=== PATIENT | male | born 1975 | race Caucasian/White ===

== ENCOUNTER → 2020-03-16 11:42 | Outpatient (BNVA) | payer OTHER, SELFPAY | PROVIDERS: Family Provider Family Medicine; PCP Family Medicine; Visit Provider Registered Nurse | DX: E11.9 Type 2 diabetes mellitus without complications (principal); E78.5 Hyperlipidemia, unspecified; I10 Essential (primary) hypertension | CPT/HCPCS: 80053; 80061; 83036; 85025 ==

== ENCOUNTER → 2020-05-21 12:58 | Outpatient (BNVA) | payer OTHER, SELFPAY | PROVIDERS: Family Provider Family Medicine; PCP Family Medicine; Visit Provider Registered Nurse | DX: Z20.828 Contact with and (suspected) exposure to other viral communicable diseases (principal); R11.0 Nausea; J06.9 Acute upper respiratory infection, unspecified | CPT/HCPCS: 87635 ==

== ENCOUNTER 2023-05-05 16:25 | Inpatient (IN) | payer OTHER, SELFPAY ==
[2023-05-05] VITALS (31 sets, daily range): BP systolic 88–158; BP diastolic 56–99; PULSE 101–122; RESP 13–24; TEMP 36.5; O2SAT 90–98; BMI 26.3
--- NOTE | 2023-05-05 16:44 | USR_ITS ---
PROCEDURE INFORMATION: Exam: US Abdomen, Limited; Right Upper Quadrant Exam date and time: 05/05/2023 6:13 PM Age: 47 years old Clinical indication: Nausea and vomiting; Additional info: N/v TECHNIQUE: Imaging protocol: Real time ultrasound of the abdomen with image documentation. Limited exam focused on the right upper quadrant. COMPARISON: No relevant prior studies available. FINDINGS: Liver: Normal. No masses. Small lobulated cyst adjacent to the gallbladder fossa. Gallbladder: Normal. No gallstones. There is no gallbladder wall thickening. Biliary ducts: Normal. No stones. No dilation. Pancreas: Visualized pancreas is unremarkable. Right kidney: Normal. No mass. No hydronephrosis. Trace fluid adjacent to the right kidney. US/US gall bladder 71017 IMPRESSION: No significant abnormality.
--- NOTE | 2023-05-05 16:47 | ECG_ITS ---
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 Measurements Intervals [place] Rate: 118 P: 50 MS: 136 QRS: 268 QRSD: 90 T: 39 QT: 307 QTc: 431 Interpretive Statements SINUS TACHYCARDIA POSSIBLE LEFT ATRIAL ENLARGEMENT [-0.1mV P-WAVE IN V1/V2] RIGHT AXIS DEVIATION [QRS AXIS > 100] ANTEROSEPTAL MYOCARDIAL INFARCTION , POSSIBLY ACUTE [40+ ms Q WAVE IN V1-V4] Features of high lateral wall SD ACUTE SD Compared to ECG 07/18/2018 06:00:33 Right-axis deviation now present Myocardial infarct finding now present Sinus rhythm no longer present Electronically Signed On 05-06-2023 15:14:54 DENTAL EQUIPMENT REPAIRER by Matt Chen M.D. [id number]
--- NOTE | 2023-05-05 16:48 | P.HP_ITS ---
Providers/Chief Complaint Admitting Physician: Brian Gordon MD Primary Care Provider: Kiran Walton MD Chief Complaint: DKA History of Present Illness Indio Woodward is a 47 year old male with a past medical history of CAD status post stenting x1, history of type 2 diabetes mellitus, hypertension, hyperlipidemia, who presents to [facility] due to 72 hours of nausea, vomiting, diarrhea, denies any sick contacts, recent travel, no fevers, no chills, denies any drug use, does not have any specific abdominal pain, denies any coffee-ground emesis, no hematemesis, no bloody or black stools Review of Systems Const: Reports: body aches; Denies: fever(s) or chills Card: Denies: chest pain Resp: Denies: dyspnea GI: Reports: nausea, vomiting and diarrhea; Denies: abdominal pain, coffee ground emesis or dysphagia : Denies: flank pain or difficulty urinating Musc: Denies: neck pain or back pain Skin/Breast: Denies: rash Neuro: Denies: headache(s) Medications/Allergies Home Medications Medication Instructions Recorded Confirmed Last Taken Type aspirin 81 mg tablet,delayed 81 mg PO ONCE 06/24/19 05/21/20 Unknown History release (Adult Low Dose Aspirin) coenzyme Q10 75 mg capsule (Ultra 75 mg PO ONCE 06/24/19 05/21/20 Unknown History CoQ10) gemfibrozil 600 mg tablet 600 mg PO DAILY 06/24/19 05/21/20 Unknown History ginkgo biloba 200 mg PO DAILY 06/24/19 05/21/20 Unknown History glipizide 10 mg tablet 10 mg PO BID 06/24/19 05/21/20 Unknown History metoprolol succinate 25 mg 12.5 mg PO DAILY 06/24/19 05/21/20 Unknown History tablet,extended release 24 hr sildenafil 25 mg tablet (Viagra) 25 mg PO .prn 06/24/19 05/21/20 Unknown History vitamin B complex (B 1 tab PO ONCE 06/24/19 05/21/20 Unknown History Complex-Vitamin B12 tablet) rosuvastatin 20 mg tablet 20 mg PO ONCE #90 tabs 03/16/20 05/21/20 Unknown Rx semaglutide 3 mg tablet (Rybelsus) 3 mg PO DAILY 30 days #30 tabs 03/18/20 05/21/20 Unknown Rx azithromycin 250 mg tablet See Rx Instructions PO .COMPLEX #6 05/21/20 05/21/20 Unknown Rx tabs ondansetron HCl 4 mg tablet 4 mg PO Q8H #14 tabs 05/21/20 05/21/20 Unknown Rx (Zofran) promethazine-DM 6.25 mg-15 mg/5 mL 5 - 10 ml PO .at bedtime 10 days 05/21/20 05/21/20 Unknown Rx oral syrup #118 mL ProAir HFA 90 mcg/actuation See Rx Instructions .Route 06/15/20 Unknown Rx aerosol inhaler (albuterol sulfate) .COMPLEX #8.5 grams metformin 850 mg tablet See Rx Instructions .Route 06/16/20 Unknown Rx .COMPLEX #60 tabs clopidogrel 75 mg tablet See Rx Instructions .Route 11/20/20 Unknown Rx .COMPLEX #90 tabs Allergies Allergy/AdvReac Type Severity Reaction Status Date / Time No Known Allergies Allergy Verified 05/21/20 11:49 PFSH Acute PFSH: Medical History Diabetes Hypertension Surgical History Hx of heart artery stent Hx of total cystectomy Family History Mother Cancer Father Heart attack Grandfather Heart attack Social History Smoking and tobacco/nicotine status: never used tobacco/nicotine Alcohol intake: current Alcohol intake frequency: other Alcohol type: beer Substance/Drug Use: never Physical Exam Const: COMMON NORMALS: no acute distress and patient oriented x3 HENMT: COMMON NORMALS: normocephalic HEAD & SCALP: normocephalic Eye: COMMON NORMALS: Equal, round and reactive pupils present and EOMs intact bilaterally Neck/C-Spine: COMMON NORMALS: full ROM Lymph: LYMPHATIC: no lymphadenopathy noted Chest: COMMONS NORMALS: normal inspection of the chest Resp: COMMON NORMALS: normal respiratory effort, No retractions, No use of accessory muscles and clear to auscultation bilaterally AUSCULTATION: clear to auscultation bilaterally Cardio: COMMON NORMALS: regular rate, regular rhythm, S1 normal heart sound present and S2 normal heart sound present RATE: regular rate RHYTHM: regular rhythm HEART SOUNDS: S1 normal heart sound present and S2 normal heart sound present GI: COMMON NORMALS: Normal to inspection, nondistended, normoactive bowel sounds present, Soft to palpation and non-tender Extremity: COMMON NORMALS: no pedal edema Neuro: COMMON NORMALS: patient oriented x3, CN's II-XII intact bilaterally, moves all extremities and no focal motor deficits Psych: COMMON NORMALS: mental status grossly normal A&P Assessment and plan (1) Diabetic ketoacidosis: Plan Diabetic ketoacidosis, blood sugar 940, bicarb 16, anion gap 31, VBG, pH 7.29, urine positive for ketones, ? DKA protocol, ? Normal saline at 125 cc an hour, insulin drip, ? Monitor sodium, potassium, magnesium, phosphorus every 4 hours, ? Hold insulin drip replete potassium if potassium less than 4.5, ? Every hour blood sugar checks, ? If blood sugar drops below 200, will start D5 half-normal saline at 125 cc an hour, ? We will do right upper quadrant ultrasound, ?, CRP, CPK, troponin series, ? Full code, ? Lovenox for DVT prophylaxis ? Pseudohyponatremia, monitor serum sodium likely secondary to hyperglycemia, ? Leukocytosis, will obtain a CRP, Pro-Cristian, follow blood cultures, right upper quadrant ultrasound, Attestations Medical Necessity Statement*: Patient requires hospitalization, inpatient, greater than 2 midnights, for d iabetic ketoacidosis, currently in ICU on insulin drip Coding Level of Care Code Acute Code for Chg Fwd Diagnoses Diabetic ketoacidosis E11.10
[2023-05-05] MEDS: sodium chloride 0.9% 1,000 ML 125 ML IV (17:17)
[2023-05-05] MEDS: insulin regular-human 250 UNIT in sodium chloride 0.9% 250 ML 8.59 UNIT IV (17:18)
[2023-05-05] MEDS: enoxaparin 40 mg/0.4 mL Syringe SUBCUT (17:24)
[2023-05-05] MEDS: pantoprazole 40 mg SDV IVP (17:24)
[2023-05-05 18:07] LABS: Gamma Glutamyl Transferase 21 U/L (8-61)
[2023-05-05 18:07] LABS: Glucose Point of Care 521 mg/dL (70-110)
[2023-05-05 18:08] LABS: Lactic Sepsis W/Reflex 1.7 mmol/L (0.5-2.2)
[2023-05-05 18:08] LABS: Blood Urea Nitrogen 34 mg/dL (6-20); Calcium 8.3 mg/dL (8.5-10.5); Carbon Dioxide 14 mmol/L (22-29); Chloride 91 mmol/L (98-107); Glomerular Filtration Rate 58.9 mL/min (90-130); Osmolality Calculated 305 mOsm/kg (285-295); Sodium 132 mmol/L (136-145)
[2023-05-05 18:11] LABS: Glucose 512 mg/dL (65-115)
[2023-05-05 18:13] LABS: Troponin(5th) Baseline 2216 ng/L (0-15)
[2023-05-05 18:19] LABS: Procalcitonin 0.54 ng/mL (0-0.5); Thyroid Stimulating Hormone 0.66 uIU/mL (0.27-4.20)
--- NOTE | 2023-05-05 18:20 | USCV_ITS ---
Indio Woodward Age: 47 Gender: M : 1975 Exam Date: 05/05/2023 18:37 Ordering Phys: Brian Gordon MD Technologist: Jorge Nunn [place] [facility] [place]: [place] pain BP: 143 / 89 HR: 116 Rhythm: Sinus Technical Quality: Adequate MEASUREMENTS (Male / Female) Normal Values 2D ECHO LVOT Diameter 2.1 cm LV Ejection Fraction MOD 2C 32.8 % LV Ejection Fraction 2C AL 34.8 % LA Diameter 3.8 cm LA Width 3.3 cm LA Height 4.1 cm RA Width 3.0 cm RA Height 4.5 cm Aorta at Sinotubular Diameter 2.0 cm IVC Diameter 1.7 cm M-MODE Aortic Annulus Diameter 3.0 cm LA Ao Ratio MM 1.3 MV E Point Septal Separation 2.0 cm DOPPLER AV Peak Velocity 107.0 cm/s LVOT Peak Velocity 87.0 cm/s AV Area Cont Eq vti 2.7 cm squared AV Area Cont Eq pk 2.7 cm squared MV Peak Velocity 87.0 cm/s MV Area PHT 7.6 cm squared Mitral E to A Ratio 0.8 MV E' Velocity 29.0 cm/s Mitral E to MV E' Ratio 7.3 Mitral E to LV E' Lateral Ratio 6.3 Mitral E to LV E' Septal Ratio 8.7 TR Peak Velocity 256.4 cm/s TR Peak Gradient 26.3 mmHg TR Mean Velocity 198.6 cm/s TR Mean Gradient 16.7 mmHg TR Velocity Time Integral 64.3 cm Right Atrial Pressure 3.0 mmHg Pulmonary Artery Systolic Pressu 29.3 mmHg PV Peak Velocity 122.0 cm/s RV Acceleration Time 0.1 s RV Ejection Time 0.2 s RV AcT/ET 0.4 FINDINGS Left Ventricle The anteroseptum and the anteroseptal segments were found to be almost akinetic. Severe diffuse hypokinesia of the inferior wall and the LV apex . mildly dilated LV cavity LV ejection fraction around 36% Right Ventricle Normal right ventricular size and systolic function. Right Atrium The right atrium is normal in size. Left Atrium The left atrium is normal in size. Mitral Valve No gross abnormalities noted Aortic Valve No gross abnormalities noted Tricuspid Valve No gross abnormalities noted Pulmonic Valve No gross abnormalities noted Pericardium Trivial pericardial effusion. Aorta Normal ascending aorta dimension. IVC The inferior vena cava appears normal. CONCLUSIONS Multiple wall motion abnormalities with a diminished LV ejection fraction of 36%. Mildly dilated LV cavity No gross valvular abnormalities Trivial pericardial effusion Compared to the study from 07/17/2018, the LV dysfunction is new . There is a significant drop in the LV ejection fraction from 60% to 36%. Dr Matt Chen MD [facility] (Electronically Signed) Final Date: 05 May 2023 22:48 S
[2023-05-05 18:27] LABS: Platelet Count 410 10^3/cmm (157-399)
--- NOTE | 2023-05-05 18:29 | ECG_ITS ---
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 Measurements Intervals [place] Rate: 119 P: 59 CA: 134 QRS: 257 QRSD: 94 T: 74 QT: 314 QTc: 442 Interpretive Statements SINUS TACHYCARDIA POSSIBLE LEFT ATRIAL ENLARGEMENT [-0.1mV P-WAVE IN V1/V2] LOW QRS VOLTAGE IN PRECORDIAL LEADS [QRS DEFLECTION < 1.0 mV IN CHEST LEADS] ANTEROLATERAL MYOCARDIAL INFARCTION , POSSIBLY ACUTE [40+ ms Q WAVE IN I/aVL/V3-V6] ACUTE NC INTERPRETATION BASED ON A DEFAULT AGE OF 40 YEARS Compared to ECG 05/05/2023 17:45:13 Low QRS voltage now present Right-axis deviation no longer present Myocardial infarct finding still present Electronically Signed On 05-06-2023 15:15:19 CLERICAL ASSIGNER by Matt Chen M.D. [id number]
[2023-05-05 18:31] LABS: Chol HDL Ratio 5.15 mg/dL (1.0-5.00); Cholesterol 278 mg/dL (0-200); HDL Cholesterol 54 mg/dL (60-100); LDL Cholesterol Calculated 173 mg/dL (50-129); Magnesium 2.8 mg/dL (1.7-2.3); Phosphorus 3.2 mg/dL (2.5-4.5); Triglycerides 257 mg/dL (0-150)
[2023-05-05 18:36] LABS: Creatine Phosphokinase 457 U/L (39-308)
--- NOTE | 2023-05-05 18:39 | PM.CCNAC ---
Critical Care Event Note The high probability of a clinically significant, sudden or life threatening deterioration of the patient's [] system(s) required my full and direct attention, intervention and personal management. The critical care time is as shown. This time is in addition to time spent performing any reported procedures but includes the following: [x] Data and vital sign review and interpretation [x] Patient assessment, examination and intervention [x] Documentation [x] Medication orders and management Critical Care Time Code activated: No Critical Care Time (min): 45 Additional information about critical care time: Reviewed patient's blood work, EKG, ? Patient's baseline troponin is 2216, EKG shows heart rates in the 118, with ST elevations in leads V1 through V5, no reciprocal ST depressions, unfortunately [facility] did not get an EKG or troponin level for me to compare to, but I reviewed an EKG from August 25, 2022, which was within normal limits, ? Patient was examined, he has no chest pain complaints, just feeling nauseous, as has been feeling nauseous for the last 3 days, mag is 2.8, potassium is 4.0, CPK is 457, creatinine 1.3, ? Spoke to Dr. Chen, concerns for EKG changes, elevated troponins, timeframe is unknown, as [facility] Cintron did not get an EKG or a troponin level, but it could be within the last 3 days, the question is is this an acute ME versus a process of complete Dr. Chen will come and see patient stat, -Spoke to Saritabren[facility] Cintron, unfortunately they have not obtain EKG or troponin level for me to compare to, they did fax over an EKG from August 25, 2022 that did not show acute ST-T wave changes, ? I reviewed this with patient, he denies any chest pain complaints, no recent history of chest pain just feeling nauseous for the last 3 days, I confirmed with patient that he is taking his aspirin, Plavix and did not miss any doses ? Discussed with patient plan plans him taken to the Telephone Operators Supervisor potentially this evening, ? Patient is getting a stat echocardiogram, last blood sugar was 521, creatinine 1.30 Patient's cath in 07/17/2018 -Conclusions There is severe coronary artery disease with significant two vessel disease. Separate ostia of both LAD and LCx. Due to tortuosity of subclavian artery we were not able engage LAD separate ostia therefore we switched to Right femoral approach. Mid Left Anterior Descending Coronary Artery was treated with Drug Eluting Stent and Balloon. Ostial spasm if LAD was observed as well. Mid Circumflex Coronary Artery was treated with Balloon and Drug Eluting Stent. Indication: Unstable NSTEMI with non sustained VT. Recommendations 1-Return to inpatient for close monitoring and routine cath care2-Risk factor modification for secondary prevention3-Statin and aspirin 81 mg life-long, if tolerated4-Patient was pre-loaded with 300 mg of Plavix, continue Plavix 75mg p.o. daily for at least one year. We will assess at the end of one year again to continue if further or not5-Continue optimal medical management6-Follow up with Dr. Del Toro in four weeks and your primary care in 10 days. Interventional RX Recommendation: PCI w/o planned CABG Diagnostic RX Recommendation: PCI w/o planned CABG ? Plan keep patient n.p.o., continue heparin drip, aspirin, Plavix, awaiting cardiology's recommendation, Dr. Chen seeing Coding Level of Care Code Acute Code for Chg Germaine
--- NOTE | 2023-05-05 19:11 | P.CONIM_ITS ---
Providers/Reason For Consult Consulting Physician/Specialty*: GIAN Chen MD/cardiology Reason for Consult*: Patient with a elevated troponin T, history of coronary disease and previous PCI Requesting Physician: Dr. Gordon Attending Physician: Brian Gordon MD Primary Care Provider: Kiran Walton MD History of Present Illness History of Present Illness Indio Woodward is a 47 year old male, who is transferred from [facility] where present with complaints of nausea and vomiting for 4 days. He was found to have blood sugar in the 900 range and features of DKA. He is transferred to our hospital for further evaluation management. In the ICU, he had an EKG which revealed ST elevations in the anterolateral leads. His troponin was found to be in the 2000 range. Cardiology consult is requested for further cardiac evaluation recommendations. This patient is known to have atherosclerotic heart diseas, high blood pressure, type 2 diabetes and dyslipidemia. In June 2018, he presented with a features of acute ST elevation myocardial infarction. Cardiac catheterization at that time revealed high-grade lesions in the mid LAD and mid circumflex artery. He underwent PCI of these lesions by Dr. Del Toro. He was found to have 50% lesions in the proximal and distal LAD and the mid RCA. According to the patient, he has been compliant with the medications He started having nausea and vomiting 4 days ago. Symptoms persisted with no relief. He also has been getting progressively weak. For these reasons, he was evaluated at the [facility] in [place]. He never had any chest pain. No unusual shortness of breath. No fever, chills or cough. He had an echocardiogram at the bedside today. He was found to have severe diffuse hypokinesia of the LV apex involving the mid and apical septum, anteroseptum, mid and apical inferior and apical lateral wall segments. LV ejection fraction is 36%. Trivial pericardial effusion. The EKG showed persistent ST elevations in the anterolateral leads with no ST depression. His father had a myocardial infarction in his 70s. No other significant family history. He is not and has no children. 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 No smoking abuse, alcohol abuse or any substance abuse. Review of Systems Narrative: CONSTITUTIONAL: No fever or chills. Generalized weakness EYES: No blurring of vision or other visual disturbances lately. ENT: No hoarseness of voice, auditory disturbances or sore throat. CARDIOVASCULAR: As mentioned above. RESPIRATORY: No significant cough. GASTROINTESTINAL: Nausea and vomiting. No abdominal pain GENITOURINARY: No dysuria or hematuria. INTEGUMENTARY: No skin rashes or history of skin cancer. NEURO: No transient ischemic attacks or amaurosis. PSYCHIATRIC: No history of psychosis or major depression. HEMATOLOGIC: No bleeding disorders or significant anemia. ENDOCRINE: No history of polyuria or polydipsia. MUSCULOSKELETAL: No recent joint pain or swelling. ALLERGY/IMMUNOLOGY: As mentioned above. Medications/Allergies Home Medications Medication Instructions Recorded Confirmed Last Taken Type aspirin 81 mg tablet,delayed 81 mg PO BID 06/24/19 05/06/23 Unknown History release (Adult Low Dose Aspirin) gemfibrozil 600 mg tablet 600 mg PO BID 06/24/19 05/06/23 Unknown History albuterol sulfate 90 mcg/actuation 2 puff inhalation QID PRN 05/06/23 05/06/23 Unknown History aerosol inhaler (ProAir HFA) Shortness Of Breath coenzyme Q10 100 mg capsule 100 mg PO DAILY 05/06/23 05/06/23 Unknown History (CoQ-10) diphenhydramine HCl 25 mg tablet 25 mg PO BEDTIME 05/06/23 05/06/23 Unknown Hist ory (Benadryl Allergy) ginkgo biloba 40 mg tablet 40 mg PO DAILY 05/06/23 05/06/23 Unknown History glipizide 10 mg tablet, extended 10 mg PO BID 05/06/23 05/06/23 Unknown History release 24 hr metformin 500 mg tablet,extended 500 mg PO BID 05/06/23 05/06/23 Unknown History release 24 hr omega-3 fatty acids 1,000 mg 1,000 mg PO DAILY 05/06/23 05/06/23 Unknown History capsule vitamin B complex 1 tab PO DAILY 05/06/23 05/06/23 Unknown History Allergies Allergy/AdvReac Type Severity Reaction Status Date / Time No Known Allergies Allergy Verified 05/06/23 08:17 Current Medications Generic Name Dose Route Start Last Admin Trade Name Freq PRN Reason Stop Dose Admin Insulin Human Regular 250 unit 252.5 mls @ 0 mls/hr 05/05/23 16:45 05/05/23 19:10 / Sodium Chloride IV 17 unit/hr .Q0M [facility] 17.17 mls/hr Titration Protocol Per Protocol Sodium Chloride 1,000 mls @ 125 mls/hr 05/05/23 16:45 05/05/23 17:17 Sodium Chloride 0.9% IV 125 mls/hr .Q8H RASHAD Administration Pantoprazole Sodium 40 mg 05/05/23 16:45 05/05/23 17:24 Pantoprazole 40 Mg Sdv IVP 40 mg Q24H RASHAD Administration PFSH Acute PFSH: Medical History Diabetes Hypertension Surgical History Hx of heart artery stent Hx of total cystectomy Family History Mother Cancer Father Heart attack Grandfather Heart attack Social History Smoking and tobacco/nicotine status: never used tobacco/nicotine Alcohol intake: current Alcohol intake frequency: other Alcohol type: beer Substance/Drug Use: never Vitals/I&O/Wt Last Vital Signs Pulse 120 H 05/05/23 18:00 Resp 17 05/05/23 18:00 BP 143/94 05/05/23 18:00 Pulse Ox 95 05/05/23 18:00 O2 Del Method Room Air 05/05/23 17:00 05/05/23 05/05/23 05/05/23 06:59 14:59 22:59 Intake Total 22.095 / 22.095 Output Total 800 / 800 Balance -777.905 / -777.905 Weight last 48 hrs Weight 194 lb 0.108 oz Physical Exam Narrative: GENERAL: The patient is alert and oriented times three. Not in any acute distress. Appears very lethargic HEENT: No significant pallor, icterus or lymphadenopathy.Oral cavity: There are no mucous membrane lesions. NECK: Trachea appears to be central. No masses noted. No JVD or thyromegaly appreciated. RESPIRATORY: Chest is symmetrical. No intercostals muscle retraction or any accessory muscle activation. There is no chest wall tenderness. Breath sounds are heard bilaterally. No rales or rhonchi heard. No evidence of any consolidation. BREASTS: Deferred. HEART: The heart sounds are normal. No S3 or S4. No significant murmurs. No pericardial rub ABDOMEN: No vessel pulsations or distention. No tenderness. No organomegaly appreciated. Bowel sounds are normally heard. : Deferred. RECTAL: Deferred. LYMPHATIC: No lymphadenopathy noted in the neck. EXTREMITIES: No edema or cyanosis. No clubbing. MUSCULOSKELETAL: No acute joint deformities or swelling SKIN: There are no significant rashes or ecchymosis NEUROPSYCHIATRIC: The patient is alert and oriented x3. Appears to be in a good mood. No tremors or rigidity noted. Data 05/06/23 02:59 05/06/23 06:28 Other Labs: Laboratory Last Values Plt Count 410 10^3/cmm (157-399) H 05/05/23 17:22 Sodium 132 mmol/L (136-145) L 05/05/23 17:22 Potassium 4.0 mmol/L (3.5-5.1) 05/05/23 17:22 Chloride 91 mmol/L (98-107) L 05/05/23 17:22 Carbon Dioxide 14 mmol/L (22-29) L 05/05/23 17:22 Anion Gap 31.0 (5-19) H 05/05/23 17:22 BUN 34 mg/dL (6-20) H 05/05/23 17:22 Creatinine 1.3 mg/dL (0.7-1.2) H 05/05/23 17:22 GFR Calculation 58.9 mL/min (90-130) L 05/05/23 17:22 Glucose 512 mg/dL (65-115) H* 05/05/23 17:22 POC Glucose 521 mg/dL (70-110) H* 05/05/23 18:04 Calculated Osmolality 305 mOsm/kg (285-295) H 05/05/23 17:22 Lactic Acid 1.7 mmol/L (0.5-2.2) 05/05/23 17:35 Calcium 8.3 mg/dL (8.5-10.5) L 05/05/23 17:22 Phosphorus 3.2 mg/dL (2.5-4.5) 05/05/23 17:35 Magnesium 2.8 mg/dL (1.7-2.3) H 05/05/23 17:35 GGT 21 U/L (8-61) 05/05/23 17:35 Creatine Kinase 457 U/L (39-308) H* 05/05/23 17:35 Troponin T Baseline 2216 ng/L (0-15) H* 05/05/23 17:35 Triglycerides 257 mg/dL (0-150) H 05/05/23 17:35 Cholesterol 278 mg/dL (0-200) H 05/05/23 17:35 LDL Cholesterol, Calc 173 mg/dL (50-129) H 05/05/23 17:35 HDL Cholesterol 54 mg/dL (60-100) L 05/05/23 17:35 LDL/HDL Ratio 3.20 RATIO (0.00-3.22) 05/05/23 17:35 Cholesterol/HDL Ratio 5.15 mg/dL (1.0-5.00) H 05/05/23 17:35 Procalcitonin 0.54 ng/mL (0-0.5) H 05/05/23 17:35 TSH 0.66 uIU/mL (0.27-4.20) 05/05/23 17:35 EKG 1: My Interpretation: ST elevation of 2 to 3 mm in the anterolateral leads from V1 to V6, 1 and aVL. QS pattern in the precordial leads. Q waves in lead I and aVL. Other data: Echocardiogram from today multiple wall motion abnormalities with a diminished LV ejection ?fraction of 36%. ?Mildly dilated LV cavity ?No gross valvular abnormalities ?Trivial pericardial effusion ?Compared to the study from 07/17/2018, the LV dysfunction is new ?. There is a significant drop in the LV ejection fraction from ?60% to 36%. A&P Assessment and plan (1) ST elevation myocardial infarction (STEMI) in recovery phase: Most likely this patient had a myocardial infarction 3 to 4 days ago. Apparently he never had chest pain. Based on the angiogram findings from 2019, it is possible that he may have severe three-vessel coronary artery disease. Hemodynamically seems to be fairly stable. His tachycardia could be multifactorial. Blood pressure seems to be stable. At this point, he may be treated with Plavix, heparin ,aspirin, beta-rachna, FRANKY inhibitor, statin and other symptomatic measures. (2) Ischemic cardiomyopathy: The metformin may be held at this point. Also may need to start him on SGLT2 inhibitor. I Kymberly start him on Lasix 20 mg p.o. now and daily; Spironolactone 25 mg p.o. now and daily (3) Diabetic ketoacidosis: The diabetes needs to be closely managed. His blood sugar was in the 900 range initially. Currently it is in the 500 range. (4) Hypertension: The blood pressure is minimally elevated. I may start him on losartan 25 mg p.o. daily. Also Coreg 6.25 mg p.o. twice daily. Patient has no history of asthma. Blood pressure needs to be closely monitored. Qualifiers: Hypertension type: essential hypertension Qualified Code(s): I10 - Essential (primary) hypertension (5) Dyslipidemia: May continue on the current medications. (6) Acute kidney injury: This could be multifactorial. The low output state /diabetic ketoacidosis /dehydration etc. are contributing factor. This needs to be closely monitored. Discontinue the metformin at this point. Plan Once the ketoacidosis is properly treated, we may consider going ahead with a cardiac catheterization to evaluate his coronaries and decide on further management. We will keep him n.p.o. after midnight. Thank you for the opportunity to evaluate this patient make these recommendation Consult Attestations Medical Necessity Statement: Patient requires continued hospital stay for close monitoring and further management Coding Level of Care Code [address] myocardial infarction (STEMI) in recovery phase I21.3 Ischemic cardiomyopathy I25.5 Diabetic ketoacidosis E11.10 Hypertension I10 Hypertension type: essential hypertension Dyslipidemia E78.5 Acute kidney injury N17.9
[2023-05-05 19:22] LABS: Glucose Point of Care 379 mg/dL (70-110)
[2023-05-05 19:37] LABS: Glucose Point of Care 350 mg/dL (70-110)
[2023-05-05 19:58] LABS: Estmated Average Glucose 269
[2023-05-05 20:05] LABS: Troponin 5 2HR Delta -88 ABS# (0-10)
[2023-05-05 20:06] LABS: Blood Urea Nitrogen 33 mg/dL (6-20); Calcium 8.5 mg/dL (8.5-10.5); Carbon Dioxide 12 mmol/L (22-29); Chloride 95 mmol/L (98-107); Glomerular Filtration Rate 54.1 mL/min (90-130); Glucose 371 mg/dL (65-115); Osmolality Calculated 302 mOsm/kg (285-295); Sodium 135 mmol/L (136-145); Troponin 5 2HR 2128 ng/L (0-15)
[2023-05-05 20:07] LABS: Anion Gap 31.5 (5-19); Potassium 3.5 mmol/L (3.5-5.1)
[2023-05-05 20:08] LABS: Magnesium 2.8 mg/dL (1.7-2.3); Phosphorus 2.6 mg/dL (2.5-4.5)
[2023-05-05] MEDS: clopidogrel 75 mg Tablet PO (20:18)
[2023-05-05] MEDS: losartan 50 mg Tablet 25 MG PO (20:19)
[2023-05-05] MEDS: carvedilol 6.25 mg Tablet PO (20:19)
[2023-05-05] MEDS: spironolactone 25 mg Tablet PO (20:19)
[2023-05-05] MEDS: atorvastatin 40 mg Tablet PO (20:19)
[2023-05-05] MEDS: aspirin 325 mg EC Tablet PO (20:20)
[2023-05-05] MEDS: FUROsemide 20 mg Tablet PO (20:20)
[2023-05-05 21:01] LABS: Glucose Point of Care 337 mg/dL (70-110)
[2023-05-05] MEDS: heparin drip 25,000 UNIT/500 ML PREMIX 25 UNIT IV (21:18)
[2023-05-05] MEDS: heparin 5,000 unit/mL INJ 1 mL IV (21:26)
[2023-05-05] MEDS: lidocaine 1% 5 ML in potassium chloride premix 100 ML 26.25 ML IV (21:29)
[2023-05-05 22:02] LABS: Glucose Point of Care 133 mg/dL (70-110)
[2023-05-05 22:09] LABS: Glucose Point of Care 387 mg/dL (70-110)
[2023-05-05 22:09] LABS: Glucose Point of Care 103 mg/dL (70-110)
--- NOTE | 2023-05-05 22:11 | PC.NURSE ---
Dr. Gordon was contacted about stoping the insulin drip until his potassium was infused per his report. Dr. Gordon agreed and ordered for the insulin drip to be stopped until his potassium was done infusing.
[2023-05-05 22:29] LABS: Basophils % 0.1 %; Hematocrit 47.8 % (37-53); Lymphocytes # 2.5 10^3/uL (0.8-4.8); Lymphocytes % 14.4 %; Mean Corpuscular Hemoglobin 28.9 pg (27-33); Mean Corpuscular Volume 80.2 fl (82-101); Mean Platelet Volume 8.8 fL (7.4-10.4); Monocytes # 2.1 10^3/uL (0.2-0.9); Monocytes % 12.4 %; Neutrophils # 12.59 10^3/uL (1.8-7.7); Neutrophils % 72.6 %; Nucleated Red Blood Cells % 0 %; Platelet Count 383 10^3/cmm (157-399); Red Blood Count 5.96 10^6/uL (3.85-5.65); Red Cell Distribution Width 12.1 % (12.1-15.1); White Blood Count 17.32 10^3/uL (3.29-11.43)
[2023-05-05] MEDS: metoclopramide 5 mg/mL SDV 2 mL IVP (22:29)
[2023-05-05 22:59] LABS: Glucose Point of Care 133 mg/dL (70-110)
[2023-05-05 23:00] LABS: Troponin 5 6HR Delta 243 ng/L (0-12)
[2023-05-05 23:01] LABS: Troponin 5 6HR 2459 ng/L (0-15)
[2023-05-05 23:27] LABS: Glucose Point of Care 163 mg/dL (70-110)
[2023-05-06] VITALS (98 sets, daily range): BP systolic 68–125; BP diastolic 43–86; PULSE 83–107; RESP 14–25; TEMP 36.8–37; O2SAT 90–98; BMI 26.5
[2023-05-06 00:01] LABS: Glucose Point of Care 188 mg/dL (70-110)
--- NOTE | 2023-05-06 00:45 | ECG_ITS ---
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 Measurements Intervals [place] Rate: 97 P: 53 [place]: 129 QRS: 265 QRSD: 93 T: 21 QT: 376 QTc: 479 Interpretive Statements SINUS RHYTHM LOW QRS VOLTAGE IN PRECORDIAL LEADS [QRS DEFLECTION < 1.0 mV IN CHEST LEADS] ANTEROLATERAL MYOCARDIAL INFARCTION , OF INDETERMINATE AGE [40+ ms Q WAVE IN I/aVL/V3-V6] Compared to ECG 05/05/2023 18:31:56 Sinus tachycardia no longer present Myocardial infarct finding still present Electronically Signed On 05-06-2023 16:00:30 SEO ANALYST by Matt Chen M.D. [id number]
[2023-05-06] MEDS: sodium chloride 0.9% 1,000 ML 125 ML IV ×3 (00:50→16:45)
[2023-05-06 01:06] LABS: Glucose Point of Care 248 mg/dL (70-110)
[2023-05-06] MEDS: dextrose 5%-sod chloride 0.9% 1,000 ML 75 ML IV (01:16)
[2023-05-06 01:50] LABS: Glucose Point of Care 285 mg/dL (70-110)
[2023-05-06 03:08] LABS: Glucose Point of Care 202 mg/dL (70-110)
[2023-05-06 03:31] LABS: Anion Gap 24.8 (5-19); Blood Urea Nitrogen 40 mg/dL (6-20); Calcium 8.6 mg/dL (8.5-10.5); Carbon Dioxide 18 mmol/L (22-29); Chloride 104 mmol/L (98-107); Glomerular Filtration Rate 54.1 mL/min (90-130); Glucose 185 mg/dL (65-115); Osmolality Calculated 311 mOsm/kg (285-295); Potassium 3.8 mmol/L (3.5-5.1); Sodium 143 mmol/L (136-145)
[2023-05-06 03:37] LABS: Partial Thromboplastin Time 78.8 SECONDS (23.9-36.7)
[2023-05-06 03:41] LABS: Magnesium 2.7 mg/dL (1.7-2.3); Phosphorus 1.8 mg/dL (2.5-4.5)
--- NOTE | 2023-05-06 03:45 | ECG_ITS ---
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 Measurements Intervals [place] Rate: 95 P: 53 [place]: 134 QRS: 252 QRSD: 96 T: 27 QT: 362 QTc: 455 Interpretive Statements SINUS RHYTHM LOW QRS VOLTAGE IN PRECORDIAL LEADS [QRS DEFLECTION < 1.0 mV IN CHEST LEADS] ANTEROLATERAL MYOCARDIAL INFARCTION , OF INDETERMINATE AGE [40+ ms Q WAVE IN I/aVL/V3-V6] Compared to ECG 05/06/2023 00:40:23 No significant changes Electronically Signed On 05-06-2023 16:00:34 PATENT PROSECUTION PARALEGAL by Matt Chen M.D. [id number]
[2023-05-06 04:04] LABS: Glucose Point of Care 102 mg/dL (70-110)
[2023-05-06 05:09] LABS: Glucose Point of Care 107 mg/dL (70-110)
[2023-05-06] MEDS: sodium chloride 0.9% 500 ML 999 ML IV (05:41)
[2023-05-06] MEDS: ondansetron 2 mg/ML SDV 2 mL 4 MG IVP (06:12)
--- NOTE | 2023-05-06 06:27 | ECG_ITS ---
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 Measurements Intervals [place] Rate: 102 P: 132 [place]: 128 QRS: -38 QRSD: 94 T: 241 QT: 355 QTc: 463 Interpretive Statements SINUS TACHYCARDIA LEFT AXIS DEVIATION [QRS AXIS < -30] LOW QRS VOLTAGE IN PRECORDIAL LEADS [QRS DEFLECTION < 1.0 mV IN CHEST LEADS] POSSIBLE RIGHT VENTRICULAR CONDUCTION DELAY [RSR (QR) IN V1/V2] ANTEROLATERAL MYOCARDIAL INFARCTION , OF INDETERMINATE AGE [40+ ms Q WAVE IN I/aVL/V3-V6] Compared to ECG 05/06/2023 03:15:20 Left-axis deviation now present Sinus rhythm no longer present Myocardial infarct finding still present Electronically Signed On 05-06-2023 16:00:40 HAZMAT TANKER DRIVER by Matt Chen M.D. [id number]
[2023-05-06 06:36] LABS: Glucose Point of Care 128 mg/dL (70-110)
--- NOTE | 2023-05-06 06:44 | PC.NURSE ---
Dr. Leon was contacted because patient was hypotensive and not going above a MAP of 66. ordered for a 500 cc bolus of normal saline 0.9% and the patient's blood pressure went up to a therapeutic level of MAP over 65.
[2023-05-06 07:07] LABS: Anion Gap 18.4 (5-19); Blood Urea Nitrogen 38 mg/dL (6-20); Calcium 7.2 mg/dL (8.5-10.5); Carbon Dioxide 18 mmol/L (22-29); Chloride 110 mmol/L (98-107); Glomerular Filtration Rate 58.9 mL/min (90-130); Glucose 388 mg/dL (65-115); Osmolality Calculated 321 mOsm/kg (285-295); Potassium 3.4 mmol/L (3.5-5.1); Sodium 143 mmol/L (136-145)
[2023-05-06 07:46] LABS: Magnesium 2.5 mg/dL (1.7-2.3); Phosphorus 2.2 mg/dL (2.5-4.5)
[2023-05-06 07:59] LABS: Glucose Point of Care 188 mg/dL (70-110)
[2023-05-06] MEDS: metoclopramide 5 mg/mL SDV 2 mL IVP (08:00)
--- NOTE | 2023-05-06 08:27 | PC.PHAR ---
pt states he takes care of his own medications-pt states he gets his medications at [facility] states they filled glipizide er 10mg daily on 02/28/23 pt states he takes one tab bid-pt states he hasnt taken plavix in years plavix was on a previously entered med list-pt states he also hasnt taken crestor in years [facility] states rx was closed out in november 2022-pt states he also hasnt taken rybelsus in years medication was on previously entered med list-sildenafil and metoprolol succinate er 25mg was entered on a previous med list but pt states he doesnt take either of those medications-[facility] a [facility]
[2023-05-06 08:33] LABS: Basophils % 0.1 %; Hematocrit 49.2 % (37-53); Lymphocytes # 1.9 10^3/uL (0.8-4.8); Lymphocytes % 13.8 %; Mean Corpuscular HGB Conc 33.1 g/dL (30-55); Mean Corpuscular Hemoglobin 28.4 pg (27-33); Mean Corpuscular Volume 85.9 fl (82-101); Mean Platelet Volume 9.2 fL (7.4-10.4); Monocytes # 0.8 10^3/uL (0.2-0.9); Monocytes % 5.6 %; Neutrophils # 10.82 10^3/uL (1.8-7.7); Neutrophils % 80.1 %; Nucleated Red Blood Cells % 0 %; Platelet Count 387 10^3/cmm (157-399); Red Blood Count 5.73 10^6/uL (3.85-5.65); Red Cell Distribution Width 12.8 % (12.1-15.1); White Blood Count 13.51 10^3/uL (3.29-11.43)
[2023-05-06] MEDS: lidocaine 1% 5 ML in potassium chloride premix 100 ML 26.25 ML IV (08:36)
[2023-05-06] MEDS: dextrose 5%-ns 0.45% + KCl 40 1,000 ML 75 MEQ IV ×2 (08:39→21:47)
[2023-05-06] MEDS: promethazine 25 mg/mL SDV 1 mL 12.5 MG IM (08:50)
--- NOTE | 2023-05-06 09:00 | P.PN_ITS ---
Subjective Subjective: Patient is still having the nausea and vomiting but is improving. The DKA also is slowly improving. Still he does not have any chest pain or any shortness of breath. The EKG showed persistent ST elevations in the anterolateral leads. The troponin T is trending down. No fever or chills. No cough. No other specific complaints Had some episodes of hypotension, currently improving Also was found to be hypokalemic, supplemented with the potassium Medications: Medication Review Details: Current Medications Acetaminophen (Acetaminophen 325 Mg Tablet) 650 mg PO Q6H PRN PRN Reason: Mild/Mod Pain Or Temp >/= 101 Aspirin (Aspirin 81 Mg Ec Tablet) 81 mg PO DAILY [facility] Atorvastatin Calcium (Atorvastatin 40 Mg Tablet) 40 mg PO BEDTIME [facility] Last Admin: 05/05/23 20:19 Dose: 40 mg Carvedilol (Carvedilol 6.25 Mg Tablet) 6.25 mg PO BID [facility] Last Admin: 05/05/23 20:19 Dose: 6.25 mg Clopidogrel Bisulfate (Clopidogrel 75 Mg Tablet) 75 mg PO DAILY [facility] Dextrose (Dextrose 50% Syringe 50 Ml) 25 ml IVP PRN PRN; Protocol PRN Reason: Adult DKA Hypoglycemia Nursing Protocol. Dextrose (Dextrose 50% Syringe 50 Ml) 50 ml IVP PRN PRN; Protocol PRN Reason: Adult DKA Hypoglycemia Nursing Protocol Furosemide (Furosemide 20 Mg Tablet) 20 mg PO DAILY@0800 [facility] Last Admin: 05/05/23 20:20 Dose: 20 mg Heparin Sodium (Porcine) (Heparin 5,000 Unit/Ml Inj 1 Ml) 0 unit IV PRN PRN; Protocol PRN Reason: Heparin weight-base protocol Last Admin: 05/05/23 21:26 Dose: 4,400 unit Magnesium Sulfate (Magnesium Sulfate Premix) 2 gm in 50 mls @ 50 mls/hr IV PRN PRN PRN Reason: HYPOMAGNESIUMIA Lidocaine HCl 5 ml/ Potassium (Chloride) 105 mls @ 25 mls/hr IV PRN PRN PRN Reason: hypokalemia Insulin Human Regular 250 unit (/ Sodium Chloride) 252.5 mls @ 0 mls/hr IV .Q0M [facility]; Protocol Last Titration: 05/06/23 08:32 Dose: 0 unit/hr, 0 mls/hr Potassium Phosphate 40 meq/ (Sodium Chloride) 108.5106 mls @ 27.273 mls/hr IV PRN PRN PRN Reason: hypophosphatemia Sodium Chloride (Sodium Chloride 0.9%) 1,000 mls @ 125 mls/hr IV .Q8H [facility] Last Admin: 05/06/23 08:52 Dose: 125 mls/hr Heparin Sodium/Sodium Chloride (Heparin Drip) 25,000 unit in 500 mls @ 0 mls/hr IV .Q0M [facility]; Protocol Last Titration: 05/06/23 03:39 Dose: 13.07 unit/kg/hr, 23 mls/hr Lidocaine HCl 5 ml/ Potassium (Chloride) 105 mls @ 26.25 mls/hr IV ONCE ONE Stop: 05/06/23 12:13 Last Admin: 05/06/23 08:36 Dose: 26.25 mls/hr Potassium Chloride/Dextrose/Sod Cl (Dextrose 5%-Ns 0.45% + Kcl 40) 1,000 mls @ 75 mls/hr IV .[id number] [facility] Last Admin: 05/06/23 08:39 Dose: 75 mls/hr Lanolin (Lanolin Oint 7 Gm) 1 applic TOPICAL PRN PRN PRN Reason: DRYNESS Lorazepam (Lorazepam 2 Mg/Ml Inj 1 Ml) 0.5 mg IVP Q4H PRN PRN Reason: nuasea Losartan Potassium (Losartan 50 Mg Tablet) 25 mg PO DAILY [facility] Last Admin: 05/05/23 20:19 Dose: 25 mg Metoclopramide HCl (Metoclopramide 5 Mg/Ml Sdv 2 Ml) 5 mg IVP Q6H PRN PRN Reason: NAUSEA AND VOMITING Last Admin: 05/06/23 08:00 Dose: 5 mg Morphine Sulfate (Morphine 4 Mg/Ml Sdv 1 Ml) 2 mg IVP Q4H PRN PRN Reason: SEVERE PAIN Ondansetron HCl (Ondansetron 2 Mg/Ml Sdv 2 Ml) 8 mg IVP Q6H PRN PRN Reason: NAUSEA AND VOMITING Pantoprazole Sodium (Pantoprazole 40 Mg Sdv) 40 mg IVP Q24H [facility] Last Admin: 05/05/23 17:24 Dose: 40 mg Promethazine HCl (Promethazine 25 Mg/Ml Sdv 1 Ml) 12.5 mg IM Q6H PRN PRN Reason: NAUSEA Last Admin: 05/06/23 08:50 Dose: 12.5 mg Spironolactone (Spironolactone 25 Mg Tablet) 25 mg PO DAILY [facility] Last Admin: 05/05/23 20:19 Dose: 25 mg Vitals/I&O/Wt Last Vital Signs Temp 97.7 F 05/05/23 19:55 Pulse 105 H 05/06/23 08:00 Resp 20 H 05/06/23 08:00 BP 100/64 05/06/23 08:00 Pulse Ox 93 05/06/23 08:00 O2 Del Method Room Air 05/06/23 08:00 05/05/23 05/06/23 05/06/23 22:59 06:59 14:59 Intake Total 74.750 / 74.750 1250.206 / 7567.303 8829.778 / 1550.778 Output Total 800 / 800 450 / 450 Balance -725.250 / -160.818 8803.206 / 310.401 1466.778 / 1100.778 Weight last 48 hrs Weight 195 lb 8 oz Weight 194 lb 0.108 oz Physical Exam Narrative: GENERAL: The patient is alert and oriented times three. Not in any acute distress. Appears very lethargic HEENT: No significant pallor, icterus or lymphadenopathy.Oral cavity: There are no mucous membrane lesions. NECK: Trachea appears to be central. No masses noted. No JVD or thyromegaly appreciated. RESPIRATORY: Chest is symmetrical. No intercostals muscle retraction or any accessory muscle activation. There is no chest wall tenderness. Breath sounds are heard bilaterally. No rales or rhonchi heard. No evidence of any consolidation. BREASTS: Deferred. HEART: The heart sounds are normal. No S3 or S4. No significant murmurs. No pericardial rub ABDOMEN: No vessel pulsations or distention. No tenderness. No organomegaly appreciated. Bowel sounds are normally heard. : Deferred. RECTAL: Deferred. LYMPHATIC: No lymphadenopathy noted in the neck. EXTREMITIES: No edema or cyanosis. No clubbing. MUSCULOSKELETAL: No acute joint deformities or swelling SKIN: There are no significant rashes or ecchymosis NEUROPSYCHIATRIC: The patient is alert and oriented x3. Appears to be in a good mood. No tremors or rigidity noted. Data 05/06/23 02:59 05/06/23 06:28 Other Labs: Laboratory Last Values WBC 13.51 10^3/uL (3.29-11.43) H 05/06/23 02:59 RBC 5.73 10^6/uL (3.85-5.65) H 05/06/23 02:59 Hgb 16.30 g/dL (11.27-16.99) 05/06/23 02:59 Hct 49.2 % (37-53) 05/06/23 02:59 MCV 85.9 fl (82-101) D 05/06/23 02:59 MCH 28.4 pg (27-33) 05/06/23 02:59 MCHC 33.1 g/dL (30-55) D 05/06/23 02:59 RDW 12.8 % (12.1-15.1) 05/06/23 02:59 Plt Count 387 10^3/cmm (157-399) 05/06/23 02:59 MPV 9.2 fL (7.4-10.4) 05/06/23 02:59 Neut % (Auto) 80.1 % 05/06/23 02:59 Lymph % (Auto) 13.8 % 05/06/23 02:59 [place] % (Auto) 5.6 % 05/06/23 02:59 Eos % (Auto) 0.0 % 05/06/23 02:59 Baso % (Auto) 0.1 % 05/06/23 02:59 Neut # (Auto) 10.82 10^3/uL (1.8-7.7) H 05/06/23 02:59 Lymph # (Auto) 1.9 10^3/uL (0.8-4.8) 05/06/23 02:59 [place] # (Auto) 0.8 10^3/uL (0.2-0.9) 05/06/23 02:59 Eos # (Auto) 0.0 10^3/uL (0.0-0.8) 05/06/23 02:59 Baso # (Auto) 0.0 10^3/uL (0.0-0.1) 05/06/23 02:59 Nucleated RBC % (auto) 0 % 05/06/23 02:59 Nucleated RBCs # 0.0 /100WBC 05/06/23 02:59 APTT 78.8 SECONDS (23.9-36.7) H 05/06/23 02:59 Sodium 143 mmol/L (136-145) 05/06/23 06:28 Potassium 3.4 mmol/L (3.5-5.1) L 05/06/23 06:28 Chloride 110 mmol/L (98-107) H 05/06/23 06:28 Carbon Dioxide 18 mmol/L (22-29) L 05/06/23 06:28 Anion Gap 18.4 (5-19) 05/06/23 06:28 BUN 38 mg/dL (6-20) H 05/06/23 06:28 Creatinine 1.3 mg/dL (0.7-1.2) H 05/06/23 06:28 GFR Calculation 58.9 mL/min (90-130) L 05/06/23 06:28 Glucose 388 mg/dL (65-115) H 05/06/23 06:28 POC Glucose 257 mg/dL (70-110) H 05/06/23 10:04 Estimat Average Glucose 269 05/05/23 17:35 Hemoglobin A1c 11.0 % (4.0-6.0) H 05/05/23 17:35 Calculated Osmolality 321 mOsm/kg (285-295) H 05/06/23 06:28 Lactic Acid 1.7 mmol/L (0.5-2.2) 05/05/23 17:35 Calcium 7.2 mg/dL (8.5-10.5) L 05/06/23 06:28 Phosphorus 2.2 mg/dL (2.5-4.5) L 05/06/23 06:28 Magnesium 2.5 mg/dL (1.7-2.3) H 05/06/23 06:28 GGT 21 U/L (8-61) 05/05/23 17:35 Creatine Kinase 457 U/L (39-308) H* 05/05/23 17:35 Troponin T Gen 5 ng/L 2283 ng/L (0-15) H* 05/06/23 06:28 Troponin T Baseline 2216 ng/L (0-15) H* 05/05/23 17:35 Troponin T 120 Minute 2128 ng/L (0-15) H 05/05/23 19:35 Delta Troponin T -88 ABS# (0-10) L 05/05/23 19:35 Troponin T Hi Sens 6Hr 2459 ng/L (0-15) H 05/05/23 22:25 Troponin T Hi Sens 6Hr Delta 243 ng/L (0-12) H* 05/05/23 22:25 NT-Pro-B Natriuret Pep 4710 pg/mL (0-125) H 05/06/23 06:28 Triglycerides 257 mg/dL (0-150) H 05/05/23 17:35 Cholesterol 278 mg/dL (0-200) H 05/05/23 17:35 LDL Cholesterol, Calc 173 mg/dL (50-129) H 05/05/23 17:35 HDL Cholesterol 54 mg/dL (60-100) L 05/05/23 17:35 LDL/HDL Ratio 3.20 RATIO (0.00-3.22) 05/05/23 17:35 Cholesterol/HDL Ratio 5.15 mg/dL (1.0-5.00) H 05/05/23 17:35 Procalcitonin 0.54 ng/mL (0-0.5) H 05/05/23 17:35 TSH 0.66 uIU/mL (0.27-4.20) 05/05/23 17:35 EKG 2: My Interpretation: Normal sinus rhythm with a persistent ST elevations in the anterolateral leads. A&P Assessment and plan (1) ST elevation myocardial infarction (STEMI) in recovery phase: The troponin T is trending down. Most likely the patient had the myocardial infarction, 2 or 3 days ago. EKG does not show any new changes. May continue on the current medications. (2) Ischemic cardiomyopathy: May continue on the current medications for the time being. The Lasix and the losartan were held due to hypotension. We will be closely monitoring the urine output and the vital signs (3) Diabetic ketoacidosis: DKA slowly improving. Management as per the primary (4) Hypertension: Currently the blood pressure is returning to the normal range. We will continue on the current medications and closely monitor in the ICU. Qualifiers: Hypertension type: essential hypertension Qualified Code(s): I10 - Essential (primary) hypertension (5) Dyslipidemia: May continue on the current medications. (6) Acute kidney injury: The BUN and the creatinine levels are still remaining unchanged. May continue careful IV hydration Plan The proBNP today is 4800; troponin went up to 2400 last night and today is in the 2200 range Patient requires a cardiac catheterization to further evaluate the coronary arteries. However because of his acute kidney injury and ongoing DKA we may hold off on this till the medical conditions are stable. Continue to optimize the medical treatment. Discussed the current status and the plan with the patient in detail which she understood well. Discussed with Dr. Gordon Attestations Medical Necessity Statement*: Patient requires continued hospital stay for close monitoring and further management Coding Level of Care Code [address] elevation myocardial infarction (STEMI) in recovery phase I21.3 Ischemic cardiomyopathy I25.5 Diabetic ketoacidosis E11.10 Hypertension I10 Hypertension type: essential hypertension Dyslipidemia E78.5 Acute kidney injury N17.9
[2023-05-06 09:28] LABS: Troponin T (5th) Once 2283 ng/L (0-15)
[2023-05-06 09:32] LABS: NT Pro B Type Natriuretic Pept 4710 pg/mL (0-125)
--- NOTE | 2023-05-06 09:45 | ECG_ITS ---
[facility] Test Date: 2023-05-06 Pat Name: Indio Woodward Department: Room: [facility] Gender: Male [employer]: : 1975 Requested By: Brian Gordon Order Number: [id number] Brady MD: Matt Chen M.D. Measurements Intervals [place] Rate: 98 P: 45 DC: 112 QRS: -64 QRSD: 93 T: 20 QT: 368 QTc: 472 Interpretive Statements SINUS RHYTHM WITH SHORT DC INTERVAL LOW QRS VOLTAGE IN PRECORDIAL LEADS [QRS DEFLECTION < 1.0 mV IN CHEST LEADS] LEFT ANTERIOR FASCICULAR BLOCK [QRS AXIS <= -45, QR IN I, RS IN II] ANTEROLATERAL MYOCARDIAL INFARCTION , OF INDETERMINATE AGE [40+ ms Q WAVE IN I/aVL/V3-V6] Compared to ECG 05/06/2023 06:27:18 Short DC interval now present Left anterior fascicular block now present Sinus tachycardia no longer present Left-axis deviation no longer present Myocardial infarct finding still present Electronically Signed On 05-06-2023 16:02:41 ADVERTISING DISPLAY ROTATOR by Matt Chen M.D. [email or web address]
[2023-05-06] MEDS: clopidogrel 75 mg Tablet PO (09:46)
[2023-05-06] MEDS: carvedilol 6.25 mg Tablet PO ×2 (09:46→17:29)
[2023-05-06] MEDS: aspirin 81 mg EC Tablet PO (09:46)
--- NOTE | 2023-05-06 09:56 | PC.NURSE ---
Rounding with Dr. Gordon: See MAR for titration. Verbal order to pause insulin drip until KCL infused, then restart insulin drip at previous rate of 1unit/hr. Orders for change in fluids to support labs followed.
[2023-05-06 10:08] LABS: Glucose Point of Care 257 mg/dL (70-110)
--- NOTE | 2023-05-06 10:33 | PC.NUTR ---
RD consulted for DM nutrition education. Pt not awake or receptive to edu. RD will f/u tomorrow to reattempt.
[2023-05-06 10:46] LABS: Partial Thromboplastin Time 64.7 SECONDS (23.9-36.7)
[2023-05-06 10:50] LABS: Blood Urea Nitrogen 38 mg/dL (6-20); Calcium 8.2 mg/dL (8.5-10.5); Carbon Dioxide 14 mmol/L (22-29); Chloride 104 mmol/L (98-107); Glomerular Filtration Rate 58.9 mL/min (90-130); Glucose 274 mg/dL (65-115); Magnesium 2.7 mg/dL (1.7-2.3); Osmolality Calculated 301 mOsm/kg (285-295); Sodium 136 mmol/L (136-145)
[2023-05-06 10:51] LABS: Anion Gap 22.4 (5-19); Potassium 4.4 mmol/L (3.5-5.1)
[2023-05-06 11:36] LABS: Glucose Point of Care 325 mg/dL (70-110)
--- NOTE | 2023-05-06 11:58 | P.PN_ITS ---
Subjective Subjective: Patient was seen this morning, he is alert oriented x3, following all commands, continues to have severe nausea and vomiting, no abdominal pain, no chest pain, no shortness of breath, we discussed the events of last night, he was found to have ST elevations on EKG with troponins over 1999, I think he has completed an infarct, as his symptoms started roughly 4 days ago with severe nausea vomiting no chest pain, shortness of breath, echocardiogram showed an EF of 30% with wall motion abnormalities, cardiology was consulted Dr. Chen spoke to patient, plan is to continue to monitor him as inpatient, his anion gap persist, his potassium is low currently replacing, insulin drip on hold, will resume once potassium improves, will continue on DKA protocol, until gap closes, he understands this, I had extensive discussion about his overall goals of care wants to remain a full code, wants all interventions, we discussed the possibility of an angiogram, will have to monitor him clinically, once he is out of DKA we can certainly consider doing an angiogram, based upon risk and benefits discussion with patient cardiology, Vitals/I&O/Wt Last Vital Signs Temp 98.6 F 05/06/23 09:15 Pulse 85 05/06/23 11:45 Resp 18 05/06/23 11:45 BP 95/59 05/06/23 11:45 Pulse Ox 98 05/06/23 11:45 O2 Del Method Room Air 05/06/23 11:45 05/05/23 05/06/23 05/06/23 22:59 06:59 14:59 Intake Total 74.750 / 74.750 1250.206 / 2384.829 6200.778 / 1550.778 Output Total 800 / 800 450 / 450 Balance -725.250 / -548.565 9368.206 / 199.744 0471.778 / 1100.778 Weight last 48 hrs Weight 88.677 kg Weight 88 kg Physical Exam Const: COMMON NORMALS: no acute distress and patient oriented x3 Resp: COMMON NORMALS: normal respiratory effort, No retractions, No use of accessory muscles and clear to auscultation bilaterally AUSCULTATION: clear to auscultation bilaterally Cardio: COMMON NORMALS: regular rate, regular rhythm, S1 normal heart sound present and S2 normal heart sound present RATE: regular rate RHYTHM: regular rhythm HEART SOUNDS: S1 normal heart sound present and S2 normal heart sound present GI: COMMON NORMALS: Normal to inspection, nondistended, normoactive bowel sounds present, Soft to palpation and non-tender PALPATION: Yes Soft to palpation Extremity: COMMON NORMALS: no pedal edema Neuro: COMMON NORMALS: patient oriented x3 Psych: COMMON NORMALS: mental status grossly normal Data 05/06/23 02:59 05/06/23 10:15 A&P Assessment and plan (1) Diabetic ketoacidosis: (2) ST elevation myocardial infarction (STEMI) in recovery phase: (3) Acute kidney injury: (4) Ischemic cardiomyopathy: (5) Dyslipidemia: (6) T2DM (type 2 diabetes mellitus): (7) Recent non-ST elevation myocardial infarction: Plan Diabetic ketoacidosis, blood sugar 274, gap 22.4, bicarb 14, creatinine 1.30 ? DKA protocol, ? Normal saline at 125 cc an hour, insulin drip, ? Monitor sodium, potassium, magnesium, phosphorus every 4 hours, ? Hold insulin drip replete potassium if potassium less than 4.5, ? Every hour blood sugar checks, ? If blood sugar drops below 200, will start D5 half-normal saline at 125 cc an hour, ? We will do right upper quadrant ultrasound, ?, CRP, CPK, troponin series, ? Full code, ? Lovenox for DVT prophylaxis ? Pseudohyponatremia, monitor serum sodium likely secondary to hyperglycemia, ? Leukocytosis, will obtain a CRP, Pro-Cristian, follow blood cultures, right upper quadrant ultrasound, STEMI, completed infarct, in recovery phase, ? Unfortunately outside hospital no EKG or troponin series were obtained before he was transferred, EKG here showed ST elevations, with troponins over 2000, pos itive delta troponin, managed with aspirin, statin, Plavix, cardiology consultation ? Ischemic cardiomyopathy ? Concerns for likely acute event was 3 to 4 days ago, no chest pain, just severe nausea vomiting ? Patient was adamant he has not stopped taking his aspirin, Plavix ? Is a poorly controlled diabetic ? Coronary angiogram in 2019 showed two-vessel disease status post stenting x2, LAD, left circumflex Patient's cath in 07/17/2018 -Conclusions ? There is severe coronary artery disease with significant two vessel disease. Separate ostia of both LAD and LCx. Due to tortuosity of subclavian artery we were not able engage LAD separate ostia therefore we switched to Right femoral approach. ? Mid Left Anterior Descending Coronary Artery was treated with Drug Eluting Stent and Balloon. Ostial spasm if LAD was observed as well. ? Mid Circumflex Coronary Artery was treated with Balloon and Drug Eluting Stent. ? Indication: Unstable NSTEMI with non sustained VT. ? Cardiac echocardiogram ??CONCLUSIONS ?Multiple wall motion abnormalities with a diminished LV ejection ?fraction of 36%. ?Mildly dilated LV cavity ?No gross valvular abnormalities ?Trivial pericardial effusion ?Compared to the study from 07/17/2018, the LV dysfunction is new ?. There is a significant drop in the LV ejection fraction from ?60% to 36%. ? Plan, ? Cardiology in consultation, ? Heparin drip ? Aspirin, Plavix, ? Blood pressures are soft, but he can tolerate we will consider beta-rachna, ? Continue statin, ? Monitor cardiac status closely, ? Plans on possible coronary angiography based on kidney function and clinical progress as above, ? Full code, ? Heparin drip per DVT prophylaxis Attestations Medical Necessity Statement*: Patient requires hospitalization for diabetic ketoacidosis, STEMI Coding Level of Care Code Critical Care >/= 30 minutes Critical care time (in minutes): 45 The high probability of a clinically significant, sudden or life threatening deterioration, as referenced in this documentation, required my full and direct attention, intervention and personal management. The critical care time shown is in addition to time spent performing any reported separately billable procedures and includes the following: [x] Data and vital sign review and interpretation [x ] Patient assessment, examination and intervention [x] Medication orders and management [x] Patient/Family updates as able [x] Care Coordination and Documentation. Diagnoses Diabetic ketoacidosis E11.10 ST elevation myocardial infarction (STEMI) in recovery phase I21.3 Acute kidney injury N17.9 Ischemic cardiomyopathy I25.5 Dyslipidemia E78.5 T2DM (type 2 diabetes mellitus) E11.9 Recent non-ST elevation myocardial infarction
[2023-05-06] MEDS: ondansetron 2 mg/ML SDV 2 mL 8 MG IVP (12:53)
[2023-05-06] MEDS: potassium chloride ER 20 mEq Tablet 40 MEQ PO (13:00)
[2023-05-06 13:18] LABS: Glucose Point of Care 313 mg/dL (70-110)
[2023-05-06 14:25] LABS: Glucose Point of Care 384 mg/dL (70-110)
[2023-05-06 15:08] LABS: Glucose Point of Care 346 mg/dL (70-110)
[2023-05-06 15:54] LABS: Anion Gap 23.8 (5-19); Blood Urea Nitrogen 36 mg/dL (6-20); Calcium 8.1 mg/dL (8.5-10.5); Carbon Dioxide 12 mmol/L (22-29); Chloride 104 mmol/L (98-107); Glomerular Filtration Rate 64.6 mL/min (90-130); Glucose 369 mg/dL (65-115); Magnesium 2.7 mg/dL (1.7-2.3); Osmolality Calculated 303 mOsm/kg (285-295); Phosphorus 1.7 mg/dL (2.5-4.5); Potassium 4.8 mmol/L (3.5-5.1); Sodium 135 mmol/L (136-145)
[2023-05-06 16:09] LABS: Troponin T (5th) Once 2089 ng/L (0-15)
[2023-05-06 16:13] LABS: Glucose Point of Care 296 mg/dL (70-110)
[2023-05-06] MEDS: heparin drip 25,000 UNIT/500 ML PREMIX 23 UNIT IV (16:45)
[2023-05-06] MEDS: pantoprazole 40 mg SDV IVP (16:46)
[2023-05-06 17:31] LABS: Glucose Point of Care 304 mg/dL (70-110)
[2023-05-06 18:07] LABS: Glucose Point of Care 217 mg/dL (70-110)
[2023-05-06 18:59] LABS: Anion Gap 20.5 (5-19); Blood Urea Nitrogen 33 mg/dL (6-20); Calcium 7.9 mg/dL (8.5-10.5); Carbon Dioxide 14 mmol/L (22-29); Chloride 107 mmol/L (98-107); Glomerular Filtration Rate 71.4 mL/min (90-130); Glucose 244 mg/dL (65-115); Magnesium 2.6 mg/dL (1.7-2.3); Osmolality Calculated 299 mOsm/kg (285-295); Phosphorus 2.1 mg/dL (2.5-4.5); Potassium 4.5 mmol/L (3.5-5.1); Sodium 137 mmol/L (136-145)
[2023-05-06 19:06] LABS: Glucose Point of Care 168 mg/dL (70-110)
--- NOTE | 2023-05-06 19:23 | PC.NURSE ---
Patient 1700 BG result from finger stick 168mg/dl. Per protocol insulin drip titration to be reduced by 8 units per hour. Drip currently running at 6.[address] Leon contacted and orders received to half the rate of the drip. See MAR for titration to 3.25 units per hour.
[2023-05-06] MEDS: atorvastatin 40 mg Tablet PO (20:38)
[2023-05-06 20:54] LABS: Glucose Point of Care 239 mg/dL (70-110)
[2023-05-06 22:06] LABS: Glucose Point of Care 149 mg/dL (70-110)
[2023-05-06 23:08] LABS: Glucose Point of Care 166 mg/dL (70-110)
[2023-05-06 23:20] LABS: Anion Gap 13.6 (5-19); Blood Urea Nitrogen 30 mg/dL (6-20); Calcium 8.1 mg/dL (8.5-10.5); Carbon Dioxide 20 mmol/L (22-29); Chloride 108 mmol/L (98-107); Glomerular Filtration Rate 71.4 mL/min (90-130); Glucose 173 mg/dL (65-115); Magnesium 2.5 mg/dL (1.7-2.3); Osmolality Calculated 294 mOsm/kg (285-295); Potassium 4.6 mmol/L (3.5-5.1); Sodium 137 mmol/L (136-145)
[2023-05-07] VITALS (98 sets, daily range): BP systolic 88–141; BP diastolic 59–95; PULSE 83–106; RESP 1–34; TEMP 36.7–36.8; O2SAT 87–95
[2023-05-07 00:34] LABS: Glucose Point of Care 219 mg/dL (70-110)
[2023-05-07 01:33] LABS: Glucose Point of Care 228 mg/dL (70-110)
[2023-05-07] MEDS: sodium chloride 0.9% 1,000 ML 125 ML IV (01:33)
[2023-05-07 02:07] LABS: Glucose Point of Care 238 mg/dL (70-110)
[2023-05-07 02:16] LABS: Anion Gap 15.4 (5-19); Blood Urea Nitrogen 27 mg/dL (6-20); Calcium 8.1 mg/dL (8.5-10.5); Carbon Dioxide 18 mmol/L (22-29); Chloride 107 mmol/L (98-107); Glomerular Filtration Rate 79.8 mL/min (90-130); Glucose 231 mg/dL (65-115); Magnesium 2.5 mg/dL (1.7-2.3); Osmolality Calculated 294 mOsm/kg (285-295); Phosphorus 1.9 mg/dL (2.5-4.5); Potassium 4.4 mmol/L (3.5-5.1); Sodium 136 mmol/L (136-145)
[2023-05-07 03:14] LABS: Glucose Point of Care 227 mg/dL (70-110)
[2023-05-07] MEDS: metoclopramide 5 mg/mL SDV 2 mL IVP (04:04)
[2023-05-07 04:13] LABS: Glucose Point of Care 230 mg/dL (70-110)
[2023-05-07 05:18] LABS: Glucose Point of Care 204 mg/dL (70-110)
[2023-05-07 05:27] LABS: Platelet Count 306 10^3/cmm (157-399)
[2023-05-07 05:46] LABS: Anion Gap 16.3 (5-19); Blood Urea Nitrogen 25 mg/dL (6-20); Carbon Dioxide 16 mmol/L (22-29); Chloride 109 mmol/L (98-107); Glomerular Filtration Rate 79.8 mL/min (90-130); Glucose 257 mg/dL (65-115); Magnesium 2.6 mg/dL (1.7-2.3); Osmolality Calculated 297 mOsm/kg (285-295); Phosphorus 1.4 mg/dL (2.5-4.5); Potassium 4.3 mmol/L (3.5-5.1); Sodium 137 mmol/L (136-145)
[2023-05-07 05:51] LABS: Partial Thromboplastin Time 114.2 SECONDS (23.9-36.7)
[2023-05-07 07:17] LABS: Glucose Point of Care 251 mg/dL (70-110)
[2023-05-07 08:21] LABS: Glucose Point of Care 217 mg/dL (70-110)
--- NOTE | 2023-05-07 09:14 | P.PN_ITS ---
Subjective Subjective: This patient continues to have some nausea. No chest pain. He also has some blood-tinged sputum from the nausea and vomiting that he has been having. No hemoptysis as such. Telemetry shows sinus rhythm/sinus tachycardia. No new arrhythmias are noted on the monitor. Medications: Medication Review Details: Current Medications Acetaminophen (Acetaminophen 325 Mg Tablet) 650 mg PO Q6H PRN PRN Reason: Mild/Mod Pain Or Temp >/= 101 Aspirin (Aspirin 81 Mg Ec Tablet) 81 mg PO DAILY [facility] Last Admin: 05/06/23 09:46 Dose: 81 mg Atorvastatin Calcium (Atorvastatin 40 Mg Tablet) 40 mg PO BEDTIME [facility] Last Admin: 05/06/23 20:38 Dose: 40 mg Carvedilol (Carvedilol 6.25 Mg Tablet) 6.25 mg PO BID [facility] Last Admin: 05/06/23 17:29 Dose: 6.25 mg Clopidogrel Bisulfate (Clopidogrel 75 Mg Tablet) 75 mg PO DAILY [facility] Last Admin: 05/06/23 09:46 Dose: 75 mg Dextrose (Dextrose 50% Syringe 50 Ml) 25 ml IVP PRN PRN; Protocol PRN Reason: Adult DKA Hypoglycemia Nursing Protocol. Dextrose (Dextrose 50% Syringe 50 Ml) 50 ml IVP PRN PRN; Protocol PRN Reason: Adult DKA Hypoglycemia Nursing Protocol Furosemide (Furosemide 20 Mg Tablet) 20 mg PO DAILY@0800 [facility] Last Admin: 05/05/23 20:20 Dose: 20 mg Heparin Sodium (Porcine) (Heparin 5,000 Unit/Ml Inj 1 Ml) 0 unit IV PRN PRN; Protocol PRN Reason: Heparin weight-base protocol Last Admin: 05/05/23 21:26 Dose: 4,400 unit Magnesium Sulfate (Magnesium Sulfate Premix) 2 gm in 50 mls @ 50 mls/hr IV PRN PRN PRN Reason: HYPOMAGNESIUMIA Lidocaine HCl 5 ml/ Potassium (Chloride) 105 mls @ 25 mls/hr IV PRN PRN PRN Reason: hypokalemia Insulin Human Regular 250 unit (/ Sodium Chloride) 252.5 mls @ 0 mls/hr IV .Q0M [facility]; Protocol Last Titration: 05/07/23 08:18 Dose: 2.62 unit/hr, 2.65 mls/hr Potassium Phosphate 40 meq/ (Sodium Chloride) 108.5106 mls @ 27.273 mls/hr IV PRN PRN PRN Reason: hypophosphatemia Sodium Chloride (Sodium Chloride 0.9%) 1,000 mls @ 125 mls/hr IV .Q8H [facility] Last Admin: 05/07/23 01:33 Dose: 125 mls/hr Heparin Sodium/Sodium Chloride (Heparin Drip) 25,000 unit in 500 mls @ 0 mls/hr IV .Q0M [facility]; Protocol Last Titration: 05/07/23 04:30 Dose: 10.23 unit/kg/hr, 18 mls/hr Potassium Chloride/Dextrose/Sod Cl (Dextrose 5%-Ns 0.45% + Kcl 40) 1,000 mls @ 75 mls/hr IV .[id number] [facility] Last Admin: 05/06/23 21:47 Dose: 75 mls/hr Lanolin (Lanolin Oint 7 Gm) 1 applic TOPICAL PRN PRN PRN Reason: DRYNESS Lorazepam (Lorazepam 2 Mg/Ml Inj 1 Ml) 0.5 mg IVP Q4H PRN PRN Reason: nuasea Losartan Potassium (Losartan 50 Mg Tablet) 25 mg PO DAILY [facility] Last Admin: 05/05/23 20:19 Dose: 25 mg Metoclopramide HCl (Metoclopramide 5 Mg/Ml Sdv 2 Ml) 5 mg IVP Q6H PRN PRN Reason: NAUSEA AND VOMITING Last Admin: 05/07/23 04:04 Dose: 5 mg Morphine Sulfate (Morphine 4 Mg/Ml Sdv 1 Ml) 2 mg IVP Q4H PRN PRN Reason: SEVERE PAIN Ondansetron HCl (Ondansetron 2 Mg/Ml Sdv 2 Ml) 8 mg IVP Q6H PRN PRN Reason: NAUSEA AND VOMITING Last Admin: 05/06/23 12:53 Dose: 8 mg Pantoprazole Sodium (Pantoprazole 40 Mg Sdv) 40 mg IVP Q24H [facility] Last Admin: 05/06/23 16:46 Dose: 40 mg Promethazine HCl (Promethazine 25 Mg/Ml Sdv 1 Ml) 12.5 mg IM Q6H PRN PRN Reason: NAUSEA Last Admin: 05/06/23 08:50 Dose: 12.5 mg Scopolamine (Scopolamine 1.5 Patch) 1 patch TRANSDERMA Q3D [facility] Spironolactone (Spironolactone 25 Mg Tablet) 25 mg PO DAILY [facility] Last Admin: 05/05/23 20:19 Dose: 25 mg Vitals/I&O/Wt Last Vital Signs Temp 98.2 F 05/06/23 20:30 Pulse 101 H 05/07/23 07:15 Resp 18 05/07/23 07:15 BP 103/69 05/07/23 07:15 Pulse Ox 90 05/07/23 07:15 O2 Del Method Room Air 05/07/23 05:15 05/06/23 05/07/23 05/07/23 22:59 06:59 14:59 Intake Total 2318.776 / 4216.002 1272.708 / 5488.710 13.788 / 13.788 Output Total 800 / 2140 Balance 2318.776 / 2876.002 472.708 / 3348.710 13.788 / 13.788 Weight last 48 hrs Weight 196 lb Weight 195 lb 8 oz Weight 194 lb 0.108 oz Physical Exam Narrative: GENERAL: The patient is alert and oriented times three. Not in any acute distress. Appears very lethargic HEENT: No significant pallor, icterus or lymphadenopathy.Oral cavity: There are no mucous membrane lesions. NECK: Trachea appears to be central. No masses noted. No JVD or thyromegaly appreciated. RESPIRATORY: Chest is symmetrical. No intercostals muscle retraction or any accessory muscle activation. There is no chest wall tenderness. Breath sounds are heard bilaterally. No rales or rhonchi heard. No evidence of any consolidation. BREASTS: Deferred. HEART: The heart sounds are normal. No S3 or S4. No significant murmurs. No pericardial rub ABDOMEN: No vessel pulsations or distention. No tenderness. No organomegaly appreciated. Bowel sounds are normally heard. : Deferred. RECTAL: Deferred. LYMPHATIC: No lymphadenopathy noted in the neck. EXTREMITIES: No edema or cyanosis. No clubbing. MUSCULOSKELETAL: No acute joint deformities or swelling SKIN: There are no significant rashes or ecchymosis NEUROPSYCHIATRIC: The patient is alert and oriented x3. Appears to be in a good mood. No tremors or rigidity noted. Data 05/08/23 02:33 05/08/23 02:33 Other Labs: Laboratory Last Values WBC 13.51 10^3/uL (3.29-11.43) H 05/06/23 02:59 RBC 5.73 10^6/uL (3.85-5.65) H 05/06/23 02:59 Hgb 16.30 g/dL (11.27-16.99) 05/06/23 02:59 Hct 49.2 % (37-53) 05/06/23 02:59 MCV 85.9 fl (82-101) D 05/06/23 02:59 MCH 28.4 pg (27-33) 05/06/23 02:59 MCHC 33.1 g/dL (30-55) D 05/06/23 02:59 RDW 12.8 % (12.1-15.1) 05/06/23 02:59 Plt Count 306 10^3/cmm (157-399) 05/07/23 04:04 MPV 9.2 fL (7.4-10.4) 05/06/23 02:59 Neut % (Auto) 80.1 % 05/06/23 02:59 Lymph % (Auto) 13.8 % 05/06/23 02:59 [place] % (Auto) 5.6 % 05/06/23 02:59 Eos % (Auto) 0.0 % 05/06/23 02:59 Baso % (Auto) 0.1 % 05/06/23 02:59 Neut # (Auto) 10.82 10^3/uL (1.8-7.7) H 05/06/23 02:59 Lymph # (Auto) 1.9 10^3/uL (0.8-4.8) 05/06/23 02:59 [place] # (Auto) 0.8 10^3/uL (0.2-0.9) 05/06/23 02:59 Eos # (Auto) 0.0 10^3/uL (0.0-0.8) 05/06/23 02:59 Baso # (Auto) 0.0 10^3/uL (0.0-0.1) 05/06/23 02:59 Nucleated RBC % (auto) 0 % 05/06/23 02:59 Nucleated RBCs # 0.0 /100WBC 05/06/23 02:59 APTT 114.2 SECONDS (23.9-36.7) H D 05/07/23 04:04 Sodium 137 mmol/L (136-145) 05/07/23 04:04 Potassium 4.3 mmol/L (3.5-5.1) 05/07/23 04:04 Chloride 109 mmol/L (98-107) H 05/07/23 04:04 Carbon Dioxide 16 mmol/L (22-29) L 05/07/23 04:04 Anion Gap 16.3 (5-19) 05/07/23 04:04 BUN 25 mg/dL (6-20) H 05/07/23 04:04 Creatinine 1.0 mg/dL (0.7-1.2) 05/07/23 04:04 GFR Calculation 79.8 mL/min (90-130) L 05/07/23 04:04 Glucose 257 mg/dL (65-115) H 05/07/23 04:04 POC Glucose 217 mg/dL (70-110) H 05/07/23 08:15 Estimat Average Glucose 269 05/05/23 17:35 Hemoglobin A1c 11.0 % (4.0-6.0) H 05/05/23 17:35 Calculated Osmolality 297 mOsm/kg (285-295) H 05/07/23 04:04 Lactic Acid 1.7 mmol/L (0.5-2.2) 05/05/23 17:35 Calcium 8.0 mg/dL (8.5-10.5) L 05/07/23 04:04 Phosphorus 1.4 mg/dL (2.5-4.5) L 05/07/23 04:04 Magnesium 2.6 mg/dL (1.7-2.3) H 05/07/23 04:04 GGT 21 U/L (8-61) 05/05/23 17:35 Creatine Kinase 457 U/L (39-308) H* 05/05/23 17:35 Troponin T Gen 5 ng/L 2089 ng/L (0-15) H* 05/06/23 15:20 Troponin T Baseline 2216 ng/L (0-15) H* 05/05/23 17:35 Troponin T 120 Minute 2128 ng/L (0-15) H 05/05/23 19:35 Delta Troponin T -88 ABS# (0-10) L 05/05/23 19:35 Troponin T Hi Sens 6Hr 2459 ng/L (0-15) H 05/05/23 22:25 Troponin T Hi Sens 6Hr Delta 243 ng/L (0-12) H* 05/05/23 22:25 NT-Pro-B Natriuret Pep 4710 pg/mL (0-125) H 05/06/23 06:28 Triglycerides 257 mg/dL (0-150) H 05/05/23 17:35 Cholesterol 278 mg/dL (0-200) H 05/05/23 17:35 LDL Cholesterol, Calc 173 mg/dL (50-129) H 05/05/23 17:35 HDL Cholesterol 54 mg/dL (60-100) L 05/05/23 17:35 LDL/HDL Ratio 3.20 RATIO (0.00-3.22) 05/05/23 17: Cholesterol/HDL Ratio 5.15 mg/dL (1.0-5.00) H 05/05/23 17:35 Procalcitonin 0.54 ng/mL (0-0.5) H 05/05/23 17:35 TSH 0.66 uIU/mL (0.27-4.20) 05/05/23 17:35 A&P Assessment and plan (1) ST elevation myocardial infarction (STEMI) in recovery phase: In view of the patient's clinical presentation, abnormal EKG, elevated troponin T and the severe LV dysfunction, in order to further evaluate his coronary status, a cardiac catheterization would be appropriate. Currently he is in DKA seems to be properly treated. (2) Ischemic cardiomyopathy: May continue on the current medications for the time being. The Lasix and the losartan were held due to hypotension. We will be closely monitoring the urine output and the vital signs. May restart the losartan if the blood pressure tolerates (3) Diabetic ketoacidosis: The DKA seems to be properly treated. May continue on the current management. (4) Hypertension: Currently the blood pressure is returning to the normal range. We will continue on the current medications and closely monitor in the ICU. Qualifiers: Hypertension type: essential hypertension Qualified Code(s): I10 - Essential (primary) hypertension (5) Dyslipidemia: May continue on the current medications. (6) Acute kidney injury: The BUN and the creatinine levels are back to normal at this time. May continue on the current measures. Plan I discussed with the patient about the cardiac catheterization. The risk of bleeding, hematoma, vascular injury, myocardial infarction, myocardial perforation, malignant cardiac arrhythmias ,CVA, renal failure and other concomitant complications were explained in detail. Patient understood this well and consented to proceed. Because of some scheduling conflict, I asked Dr. Perdue to perform the procedure. The patient is okay with this. Dr. Perdue will be performing this procedure this morning. Based on the results, further management decisions will be made. Attestations Medical Necessity Statement*: Patient requires continued hospital stay for close monitoring and further management Coding Level of Care Code [address] elevation myocardial infarction (STEMI) in recovery phase I21.3 Ischemic cardiomyopathy I25.5 Diabetic ketoacidosis E11.10 Hypertension I10 Hypertension type: essential hypertension Dyslipidemia E78.5 Acute kidney injury N17.9
--- NOTE | 2023-05-07 09:19 | PC.NURSE ---
Insulin gtt: Per protocol to decreased by 4 u/hour. Insulin gtt only infusing at 2.62 u/hour. Unable to decrease by 4 u/hour and still have gtt infusing, so no change in rate.
[2023-05-07 09:22] LABS: Glucose Point of Care 198 mg/dL (70-110)
[2023-05-07 10:00] LABS: Basophils % 0.1 %; Hematocrit 41.8 % (37-53); Lymphocytes # 2.7 10^3/uL (0.8-4.8); Lymphocytes % 28.6 %; Mean Corpuscular HGB Conc 32.5 g/dL (30-55); Mean Corpuscular Hemoglobin 28.5 pg (27-33); Mean Corpuscular Volume 87.4 fl (82-101); Mean Platelet Volume 8.9 fL (7.4-10.4); Neutrophils # 5.83 10^3/uL (1.8-7.7); Nucleated Red Blood Cells % 0 %; Platelet Count 291 10^3/cmm (157-399); Red Blood Count 4.78 10^6/uL (3.85-5.65); Red Cell Distribution Width 13.1 % (12.1-15.1); White Blood Count 9.56 10^3/uL (3.29-11.43)
[2023-05-07 10:09] LABS: Partial Thromboplastin Time 68.7 SECONDS (23.9-36.7)
[2023-05-07] MEDS: scopolamine 1.5 Patch 1 PATCH TRANSDERMA (10:10)
[2023-05-07] MEDS: carvedilol 6.25 mg Tablet PO ×2 (10:13→18:03)
[2023-05-07] MEDS: aspirin 81 mg EC Tablet PO (10:13)
[2023-05-07] MEDS: clopidogrel 75 mg Tablet PO (10:13)
--- NOTE | 2023-05-07 10:13 | PC.NURSE ---
Insulin gtt: no change in rate
[2023-05-07 10:15] LABS: Anion Gap 16.1 (5-19); Blood Urea Nitrogen 22 mg/dL (6-20); Carbon Dioxide 17 mmol/L (22-29); Chloride 106 mmol/L (98-107); Glomerular Filtration Rate 90.1 mL/min (90-130); Glucose 246 mg/dL (65-115); Magnesium 2.4 mg/dL (1.7-2.3); Osmolality Calculated 292 mOsm/kg (285-295); Phosphorus 1.5 mg/dL (2.5-4.5); Potassium 4.1 mmol/L (3.5-5.1); Sodium 135 mmol/L (136-145)
[2023-05-07 10:24] LABS: Glucose Point of Care 235 mg/dL (70-110)
--- NOTE | 2023-05-07 10:30 | PC.NURSE ---
Heparin gtt: PTT within range, no change in Heparin gtt rate indicated at this time.
[2023-05-07] MEDS: insulin glargine 100 units/1 mL 10 UNIT SUBCUT (10:42)
[2023-05-07 10:52] LABS: Troponin T (5th) Once 2054 ng/L (0-15)
[2023-05-07] MEDS: sucralfate 1 gm/10 mL Oral Liq UDC PO ×3 (11:36→20:11)
[2023-05-07] MEDS: pantoprazole 40 mg SDV IVP ×2 (11:40→23:15)
[2023-05-07 11:59] LABS: Glucose Point of Care 209 mg/dL (70-110)
[2023-05-07] MEDS: insulin lispro 100 unit/1 mL SUBCUT ×2 (12:26→18:03)
--- NOTE | 2023-05-07 13:44 | P.PN_ITS ---
Subjective Subjective: Patient was seen this morning, denies any fevers, no chills, no cough, no shortness of breath, no abdominal pain, continues to have nausea, will try scopolamine patch, he remains on insulin drip, anion gap was 21, will recheck his anion gap, if its 16 or less. His insulin drip switch to subcu insulin with Lantus, he is agreeable, currently denying any chest pain or palpitations, remains on heparin drip Vitals/I&O/Wt Last Vital Signs Temp 98.2 F 05/06/23 20:30 Pulse 92 05/07/23 10:10 Resp 18 05/07/23 07:15 BP 114/74 05/07/23 10:10 Pulse Ox 90 05/07/23 07:15 O2 Del Method Room Air 05/07/23 05:15 05/06/23 05/07/23 05/07/23 22:59 06:59 14:59 Intake Total 2318.776 / 4216.002 1272.708 / 5488.710 1953.430 / 1953.430 Output Total 800 / 2140 Balance 2318.776 / 2876.002 472.708 / 3348.710 1953.430 / 1953.430 Weight last 48 hrs Weight 88.904 kg Weight 88.677 kg Weight 88 kg Physical Exam Const: COMMON NORMALS: no acute distress and patient oriented x3 Resp: COMMON NORMALS: normal respiratory effort, No retractions, No use of accessory muscles and clear to auscultation bilaterally AUSCULTATION: clear to auscultation bilaterally Cardio: COMMON NORMALS: regular rate, regular rhythm, S1 normal heart sound present and S2 normal heart sound present RATE: regular rate RHYTHM: regular rhythm HEART SOUNDS: S1 normal heart sound present and S2 normal heart sound present GI: COMMON NORMALS: Normal to inspection, nondistended, normoactive bowel sounds present and non-tender Extremity: COMMON NORMALS: no pedal edema Neuro: COMMON NORMALS: patient oriented x3 Psych: COMMON NORMALS: mental status grossly normal Data 05/07/23 09:47 05/07/23 09:47 A&P Assessment and plan (1) Diabetic ketoacidosis: (2) ST elevation myocardial infarction (STEMI) in recovery phase: (3) Acute kidney injury: (4) Ischemic cardiomyopathy: (5) Dyslipidemia: (6) T2DM (type 2 diabetes mellitus): (7) Recent non-ST elevation myocardial infarction: Plan Diabetic ketoacidosis, blood sugars in the 200s, anion gap 21, bicarb 17, creatinine 1.2 ? DKA protocol, ? D5 half-normal saline with 40 KCl, insulin drip, ? Monitor sodium, potassium, magnesium, phosphorus every 4 hours, ? Hold insulin drip replete potassium if potassium less than 4.5, ? Every hour blood sugar checks, ? If blood sugar drops below 200, will start D5 half-normal saline at 125 cc an hour, ? We will do right upper quadrant ultrasound, ?, CRP, CPK, troponin series, ? Full code, ? Lovenox for DVT prophylaxis ? Pseudohyponatremia, monitor serum sodium likely secondary to hyperglycemia, ? Leukocytosis, likely reactive, resolved follow blood cultures, so far negative, right upper quadrant ultrasound within normal limits, STEMI, completed infarct, in recovery phase, ? Unfortunately outside hospital no EKG or troponin series were obtained before he was transferred, EKG here showed ST elevations, with troponins over 2000, positive delta troponin, managed with aspirin, statin, Plavix, cardiology consultation ? Ischemic cardiomyopathy ? Concerns for likely acute event was 3 to 4 days ago, no chest pain, just severe nausea vomiting ? Patient was adamant he has not stopped taking his aspirin, Plavix ? Is a poorly controlled diabetic ? Coronary angiogram in 2019 showed two-vessel disease status post stenting x2, LAD, left circumflex Patient's cath in 07/17/2018 -Conclusions ? There is severe coronary artery disease with significant two vessel disease. Separate ostia of both LAD and LCx. Due to tortuosity of subclavian artery we were not able engage LAD separate ostia therefore we switched to Right femoral approach. ? Mid Left Anterior Descending Coronary Artery was treated with Drug Eluting Stent and Balloon. Ostial spasm if LAD was observed as well. ? Mid Circumflex Coronary Artery was treated with Balloon and Drug Eluting Stent. ? Indication: Unstable NSTEMI with non sustained VT. ? Cardiac echocardiogram ??CONCLUSIONS ?Multiple wall motion abnormalities with a diminished LV ejection ?fraction of 36%. ?Mildly dilated LV cavity ?No gross valvular abnormalities ?Trivial pericardial effusion ?Compared to the study from 07/17/2018, the LV dysfunction is new ?. There is a significant drop in the LV ejection fraction from ?60% to 36%. ? Plan, ? Cardiology in consultation, ? Heparin drip ? Aspirin, Plavix, ? Blood pressures are soft, but he can tolerate we will consider beta-rachna, ? Continue statin, ? Monitor cardiac status closely, ? Plans on possible coronary angiography based on kidney function and clinical progress as above, ? Full code, ? Heparin drip per DVT prophylaxis Attestations Medical Necessity Statement*: Patient requires hospitalization for diabetic ketoacidosis, remains on insulin drip, plan on switching over to subcu insulin, anion gap still prolonged, will recheck next BMP, STEMI complete infarct in recovery phase, currently on heparin drip, intractable nausea vomiting, start scopolamine patch, continue to follow BMPs, last troponin 2053 Coding Level of Care Code Critical Care >/= 30 minutes Critical care time (in minutes): 45 The high probability of a clinically significant, sudden or life threatening deterioration, as referenced in this documentation, required my full and direct attention, intervention and personal management. The critical care time shown is in addition to time spent performing any reported separately billable procedures and includes the following: [x] Data and vital sign review and interpretation [x ] Patient assessment, examination and intervention [x] Medication orders and management [x] Patient/Family updates as able [x] Care Coordination and Documentation. Diagnoses Diabetic ketoacidosis E11.10 ST elevation myocardial infarction (STEMI) in recovery phase I21.3 Acute kidney injury N17.9 Ischemic cardiomyopathy I25.5 Dyslipidemia E78.5 T2DM (type 2 diabetes mellitus) E11.9 Recent non-ST elevation myocardial infarction
[2023-05-07 16:40] LABS: Blood Urea Nitrogen 18 mg/dL (6-20); Calcium 8.3 mg/dL (8.5-10.5); Carbon Dioxide 18 mmol/L (22-29); Chloride 108 mmol/L (98-107); Glomerular Filtration Rate 90.1 mL/min (90-130); Glucose 223 mg/dL (65-115); Osmolality Calculated 297 mOsm/kg (285-295); Sodium 139 mmol/L (136-145)
[2023-05-07 17:37] LABS: Glucose Point of Care 216 mg/dL (70-110)
--- NOTE | 2023-05-07 20:03 | PC.NURSE ---
Shift summary: Pt has rested in bed thought shift except for standing up to use his urinal. Which he did twice, for a total of 1400ml of urine output. He remains alert and oriented. He stated he is very tired. Insulin gtt and IVF stopped today, his anion gap and bicarb were within limits. He was given 10 u of Lantus and started on moderate siliding scale. He is tolerating this well. He had not had any nausea/vomiting episodes this shift. Scopolamine patch appled behind his left ear today. His protonix increased to every 12 hr and he was started on Sucralfate. His monitor showed sinus rhythm through shift. He did have an elevated troponin, but it is improved.
[2023-05-07] MEDS: atorvastatin 40 mg Tablet PO (20:11)
[2023-05-07] MEDS: heparin drip 25,000 UNIT/500 ML PREMIX 18 UNIT IV (20:11)
[2023-05-07] MEDS: ondansetron 2 mg/ML SDV 2 mL 8 MG IVP (20:11)
[2023-05-07 20:55] LABS: Partial Thromboplastin Time 36.6 SECONDS (23.9-36.7)
[2023-05-07 22:19] LABS: Glucose Point of Care 222 mg/dL (70-110)
[2023-05-08] VITALS (70 sets, daily range): BP systolic 103–142; BP diastolic 57–94; PULSE 76–110; RESP 11–25; TEMP 37.1; O2SAT 86–96
[2023-05-08 02:49] LABS: Basophils % 0.1 %; Eosinophils % 0.2 %; Hematocrit 39.1 % (37-53); Lymphocytes # 2.6 10^3/uL (0.8-4.8); Lymphocytes % 31.1 %; Mean Corpuscular HGB Conc 34.3 g/dL (30-55); Mean Corpuscular Hemoglobin 28.3 pg (27-33); Mean Corpuscular Volume 82.7 fl (82-101); Mean Platelet Volume 9.2 fL (7.4-10.4); Monocytes # 0.7 10^3/uL (0.2-0.9); Monocytes % 8.9 %; Neutrophils # 4.96 10^3/uL (1.8-7.7); Neutrophils % 59.5 %; Nucleated Red Blood Cells % 0 %; Platelet Count 262 10^3/cmm (157-399); Red Blood Count 4.73 10^6/uL (3.85-5.65); Red Cell Distribution Width 12.7 % (12.1-15.1); White Blood Count 8.35 10^3/uL (3.29-11.43)
[2023-05-08 03:04] LABS: Alanine Aminotransferase 24 U/L (0-41); Albumin Level 2.7 g/dL (3.5-5.2); Alkaline Phosphatase 80 U/L (40-130); Anion Gap 17.6 (5-19); Aspartate Amino Transferase 18 U/L (0-40); Blood Urea Nitrogen 15 mg/dL (6-20); Carbon Dioxide 17 mmol/L (22-29); Chloride 104 mmol/L (98-107); Globulin 2.6 g/dL (1.3-4.6); Glomerular Filtration Rate 103.2 mL/min (90-130); Glucose 230 mg/dL (65-115); Osmolality Calculated 288 mOsm/kg (285-295); Potassium 3.6 mmol/L (3.5-5.1); Sodium 135 mmol/L (136-145); Total Bilirubin 0.5 mg/dL (0.15-1.2); Total Protein 5.3 g/dL (6.6-8.7)
[2023-05-08] MEDS: sucralfate 1 gm/10 mL Oral Liq UDC PO ×4 (06:33→21:43)
[2023-05-08 07:25] LABS: Glucose Point of Care 251 mg/dL (70-110)
[2023-05-08] MEDS: insulin lispro 100 unit/1 mL SUBCUT ×3 (08:35→17:46)
[2023-05-08] MEDS: aspirin 81 mg EC Tablet PO (08:36)
[2023-05-08] MEDS: clopidogrel 75 mg Tablet PO (08:36)
[2023-05-08] MEDS: carvedilol 6.25 mg Tablet PO ×2 (08:36→17:46)
--- NOTE | 2023-05-08 08:58 | XACV_ITS ---
Exam Room: [facility] Ht: 183 cm Wt: 89 kg BSA: 2.14 m2 Gender: Male : 1975 Any Known Allergies: Other Exam Priority: Routine Procedure(s): Procedure Description: Diagnostic procedure Procedure Description: Miscellaneous Procedure Description: Angio-Seal Procedure Description: Coronary Angiography Gustavo JJ; Diagnostic Cath Status: Urgent Diagnostic RX Recommendation: CABG Post Op Diagnosis: Description: Multivessel coronary artery disease Description: Left main: There is no left main. Separate ostia for LAD and circumflex artery. LAD: Long segment of severe diffuse disease, 80%, starting from proximal to mid distal segments. Mild ISR of previously placed stent in the midsegment. Mid distal segment has 80 to 90% stenosis. LCx: Mid distal vessel 100% occluded (HAND GLOVE [employer]ER). First obtuse marginal (OM1) large vessel with 80% ostial and proximal stenosis. RCA: Large dominant vessel. Mid 40% stenosis. Mild irregularities and PLV and PDA. Recommendations: 1. Cardiac surgery consultation for likely CABG. 2. Aggressive medical management of for CAD and risk factors. Pressures Phase:Rest AO : 101 / 71 ( 84 ) @ 11:15:00 AM 86 / 67 ( 76 ) @ 11:17:00 AM 86 / 63 ( 75 ) @ 11:18:00 AM 95 / 68 ( 79 ) @ 11:23:00 AM Clinical Evaluation EBL: 5mL-10mL Procedural Details Procedure Consent Obtained. Current Diagnosis : NSTEMI. Pre-Procedure Time Out. Identified patient by full name and date of as verbalized by the patient/guarantor. Does the consent match the physician's order: Yes. Accurate & Complete Informed Consent: Yes. Inpatient/Outpatient History & Physical on Chart: Yes. If H&P is completed, is and addenduem needed: No; If yes, is the addendum complete: N/A. Visualize and Verify Site with Patient/Guarantor: N/A. Relevant Radiology Images available: Yes. Pre-op teaching completed and patient verbalized understanding. The risks, benefits, and alternatives of sedation and/or procedure were discussed by physician. The patient agrees to continue. Procedure started. [facility] Clinical Fraility Score: 4: Vulnerable. Print Inspector Indications: LV Dysfunction. Chest Pain Symptom Assessment: Non-anginal Chest Pain. Correct patient, site and procedure confirmed by cath team. PERRLA. 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 Lungs clear x 5 lobes. IV Site on Arrival: 18 gauge in the left anticubital. IV Fluids: 0.9% NaCl at KVO. 0 mL infused prior to lab animal technician. Oxygen started at 2liters/min via nasal canula. bilateral groins was prepped with chloroprep then draped in the usual sterile fashion. Baseline sample Acquired. HR: 88 BPM. Physician arrived. Physician scrubbed in. Immediate Pre-Procedure Time Out. Correct Patient: Yes; Correct Procedure: Yes; Correct Site: Yes; Correct Patient Position: Yes; Correct Supplies: Yes; Dried Flammable Prep: Yes; Blood Products Available: N/A;. Lidocaine 1% infiltrated to the right groin. Arterial access obtained with micropuncture set. Wire unable to advance. Wire and needle removed. Arterial access obtained with micropuncture set. A 6 guamanian JL4 catheter in over wire. Multiple views taken of left coronary artery. Catheter removed over the standard wire. A 6 guamanian JR4 catheter in over wire. Multiple views taken of right coronary artery. Physician review of cine films. Dr. Chen called to review the films with Dr. Perdue. Catheter removed over the standard wire. A Right femoral angiogram was performed to determine safe placement of closure device. Dr. Chen arrived. A Angio-Seal VIP ([facility]) was successful obtaining hemostatsis at the Right Femoral artery insertion site. Post Procedure: Pulses reassessed and unchanged. PERRLA. 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 No VTE prophylaxis required. Medication's Wasted: Heparin = 4000 units. Total IV fluids: 48.2 mL. Post-op diagnosis: CAD. Complications: None. Estimated blood loss: 5mL-10mL. Responsiveness - Normal response to verbal stimuli; alert and oriented, PERRLA. Airway - Unaffected, no intervention required; spontaneous ventilation. Circulation: W/N/L, pulses unchanged. Nausea/Vomiting: No. Procedure completed. Patient transferred by bed to ICU. Vital chart was stopped. Access Site Site: Right Femoral artery Sheath Size: 6 Fr Hemostasis Method: Angio-Seal VIP ([facility]) Hemostasis Success: Successful Procedure Medications Start: 10:56 AM Stop: 10:56 AM Medication: Versed Amount: 1 mg Route: I.V. Start: 10:56 AM Stop: 10:56 AM Medication: Fentanyl Amount: 50 mcg Route: I.V. Start: 11:08 AM Stop: 11:08 AM Medication: Versed Amount: 1 mg Route: I.V. Start: 11:18 AM Stop: 11:18 AM Medication: Versed 1 mg and Fentanyl 25 mcg Amount: 1 Route: I.V. Start: 11:31 AM Stop: 11:31 AM Medication: Versed 1 mg and Fentanyl 25 mcg Amount: 1 Route: I.V. I, the attending physician, have reviewed and verified all procedure medications. Yes, all medications given per verbal order History/Risk Factors Hypertension: Yes Dyslipidemia: No Peripheral Arterial Disease (PAD): No Myocardial Infarction (MT): No Obesity: No Prior Interventions PCI: Yes CABG: No Valve Surgery: No Date of PCI: 07/17/2018 Report Signatures Finalized by Malia Perdue MD on 05/08/2023 12:22 PM
[2023-05-08] MEDS: losartan 50 mg Tablet 25 MG PO (10:02)
[2023-05-08] MEDS: pantoprazole 40 mg SDV IVP ×2 (10:04→23:57)
--- NOTE | 2023-05-08 10:40 | PC.NURSE ---
labor relations officer here for patient. Heparin gtt stopped.
--- NOTE | 2023-05-08 11:55 | PC.NURSE ---
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 Denies pain. Sinus rhythm noted on monitor. Right groin soft no hematomas or bleeding noted. Right dorsalis pedis palpable.
[2023-05-08 12:08] LABS: Glucose Point of Care 215 mg/dL (70-110)
[2023-05-08] MEDS: insulin glargine 100 units/1 mL 10 UNIT SUBCUT (12:09)
--- NOTE | 2023-05-08 13:20 | PC.NURSE ---
7 beat run of VT noted. Pt asymptomatic.
[2023-05-08 17:06] LABS: Glucose Point of Care 271 mg/dL (70-110)
--- NOTE | 2023-05-08 18:08 | PM.PN ---
Subjective Subjective: Patient underwent a cardiac catheterization today. He was found to have severe diffuse disease in the proximal and mid segment of the left anterior descending artery. The circumflex artery was found to be totally occluded after giving of the first obtuse marginal branch. The first obtuse marginal artery was found to have an elongated proximal lesion involving the ostium. The right coronary artery did not have any significant stenotic lesions. Medications: Medication Review Details: Current Medications Acetaminophen (Acetaminophen 325 Mg Tablet) 650 mg PO Q6H PRN PRN Reason: Mild/Mod Pain Or Temp >/= 101 Aspirin (Aspirin 81 Mg Ec Tablet) 81 mg PO DAILY [facility] Last Admin: 05/08/23 08:36 Dose: 81 mg Atorvastatin Calcium (Atorvastatin 40 Mg Tablet) 40 mg PO BEDTIME [facility] Last Admin: 05/07/23 20:11 Dose: 40 mg Carvedilol (Carvedilol 6.25 Mg Tablet) 6.25 mg PO BID [facility] Last Admin: 05/08/23 17:46 Dose: 6.25 mg Clopidogrel Bisulfate (Clopidogrel 75 Mg Tablet) 75 mg PO DAILY [facility] Last Admin: 05/08/23 08:36 Dose: 75 mg Dextrose (Dextrose 50% Syringe 50 Ml) 25 ml IVP ONCE PRN; Protocol PRN Reason: hypoglycemia protocol Dextrose (Dextrose 50% Syringe 50 Ml) 50 ml IVP PRN PRN; Protocol PRN Reason: hypoglycemia protocol Furosemide (Furosemide 20 Mg Tablet) 20 mg PO DAILY@0800 [facility] Last Admin: 05/05/23 20:20 Dose: 20 mg Heparin Sodium (Porcine) (Heparin 5,000 Unit/Ml Inj 1 Ml) 0 unit IV PRN PRN; Protocol PRN Reason: Heparin weight-base protocol Last Admin: 05/05/23 21:26 Dose: 4,400 unit Heparin Sodium/Sodium Chloride (Heparin Drip) 25,000 unit in 500 mls @ 0 mls/hr IV .Q0M [facility]; Protocol Last Titration: 05/07/23 21:39 Dose: 12.5 unit/kg/hr, 22 mls/hr Dextrose (D5w) 500 mls @ 0 mls/hr IV ONCE PRN; Protocol PRN Reason: Adult Acute Hypoglycemia Prot Insulin Glargine (Insulin Glargine 100 Units/1 Ml) 10 unit SUBCUT Q24H [facility] Last Admin: 05/08/23 12:09 Dose: 10 unit Insulin Human Lispro (Insulin Lispro 100 Unit/1 Ml) 0 unit SUBCUT TIDWM [facility]; Protocol Last Admin: 05/08/23 17:46 Dose: 10 unit Lanolin (Lanolin Oint 7 Gm) 1 applic TOPICAL PRN PRN PRN Reason: DRYNESS Lorazepam (Lorazepam 2 Mg/Ml Inj 1 Ml) 0.5 mg IVP Q4H PRN PRN Reason: nuasea Losartan Potassium (Losartan 50 Mg Tablet) 25 mg PO DAILY [facility] Last Admin: 05/08/23 10:02 Dose: 25 mg Metoclopramide HCl (Metoclopramide 5 Mg/Ml Sdv 2 Ml) 5 mg IVP Q6H PRN PRN Reason: NAUSEA AND VOMITING Last Admin: 05/07/23 04:04 Dose: 5 mg Morphine Sulfate (Morphine 4 Mg/Ml Sdv 1 Ml) 2 mg IVP Q4H PRN PRN Reason: SEVERE PAIN Ondansetron HCl (Ondansetron 2 Mg/Ml Sdv 2 Ml) 8 mg IVP Q6H PRN PRN Reason: NAUSEA AND VOMITING Last Admin: 05/07/23 20:11 Dose: 8 mg Pantoprazole Sodium (Pantoprazole 40 Mg Sdv) 40 mg IVP Q12H [facility] Last Admin: 05/08/23 10:04 Dose: 40 mg Promethazine HCl (Promethazine 25 Mg/Ml Sdv 1 Ml) 12.5 mg IM Q6H PRN PRN Reason: NAUSEA Last Admin: 05/06/23 08:50 Dose: 12.5 mg Scopolamine (Scopolamine 1.5 Patch) 1 patch TRANSDERMA Q3D [facility] Last Admin: 05/07/23 10:10 Dose: 1 patch Spironolactone (Spironolactone 25 Mg Tablet) 25 mg PO DAILY [facility] Last Admin: 05/05/23 20:19 Dose: 25 mg Sucralfate (Sucralfate 1 Gm/10 Ml Oral Liq Udc) 1 gm PO AC&BEDTIME [facility] Last Admin: 05/08/23 17:45 Dose: 1 gm Vitals/I&O/Wt Last Vital Signs Temp 98.8 F 05/08/23 08:15 Pulse 80 05/08/23 17:30 Resp 21 H 05/08/23 17:30 BP 127/86 05/08/23 17:30 Pulse Ox 92 05/08/23 17:30 O2 Del Method Room Air 05/08/23 17:30 05/08/23 05/08/23 05/08/23 06:59 14:59 22:59 Intake Total 476 / 476 Output Total 1250 / 2650 1350 / 1350 Balance -1250 / 309.580 -874 / -874 Weight last 48 hrs Weight 196 lb Physical Exam Narrative: GENERAL: The patient is alert and oriented times three. Not in any acute distress. HEENT: No significant pallor, icterus or lymphadenopathy.Oral cavity: There are no mucous membrane lesions. NECK: Trachea appears to be central. No masses noted. No JVD or thyromegaly appreciated. RESPIRATORY: Chest is symmetrical. No intercostals muscle retraction or any accessory muscle activation. There is no chest wall tenderness. Breath sounds are heard bilaterally. No rales or rhonchi heard. No evidence of any consolidation. BREASTS: Deferred. HEART: The heart sounds are normal. No S3 or S4. No significant murmurs. No pericardial rub ABDOMEN: No vessel pulsations or distention. No tenderness. No organomegaly appreciated. Bowel sounds are normally heard. : Deferred. RECTAL: Deferred. LYMPHATIC: No lymphadenopathy noted in the neck. EXTREMITIES: No edema or cyanosis. No clubbing. MUSCULOSKELETAL: No acute joint deformities or swelling SKIN: There are no significant rashes or ecchymosis NEUROPSYCHIATRIC: The patient is alert and oriented x3. Appears to be in a good mood. No tremors or rigidity noted. Data 05/08/23 02:33 05/08/23 02:33 Other Labs: Laboratory Last Values WBC 8.35 10^3/uL (3.29-11.43) 05/08/23 02:33 RBC 4.73 10^6/uL (3.85-5.65) 05/08/23 02:33 Hgb 13.40 g/dL (11.27-16.99) 05/08/23 02:33 Hct 39.1 % (37-53) 05/08/23 02:33 MCV 82.7 fl (82-101) D 05/08/23 02:33 MCH 28.3 pg (27-33) 05/08/23 02:33 MCHC 34.3 g/dL (30-55) D 05/08/23 02:33 RDW 12.7 % (12.1-15.1) 05/08/23 02:33 Plt Count 262 10^3/cmm (157-399) 05/08/23 02:33 MPV 9.2 fL (7.4-10.4) 05/08/23 02:33 Neut % (Auto) 59.5 % 05/08/23 02:33 Lymph % (Auto) 31.1 % 05/08/23 02:33 Worth % (Auto) 8.9 % 05/08/23 02:33 Eos % (Auto) 0.2 % 05/08/23 02:33 Baso % (Auto) 0.1 % 05/08/23 02:33 Neut # (Auto) 4.96 10^3/uL (1.8-7.7) 05/08/23 02:33 Lymph # (Auto) 2.6 10^3/uL (0.8-4.8) 05/08/23 02:33 Worth # (Auto) 0.7 10^3/uL (0.2-0.9) 05/08/23 02:33 Eos # (Auto) 0.0 10^3/uL (0.0-0.8) 05/08/23 02:33 Baso # (Auto) 0.0 10^3/uL (0.0-0.1) 05/08/23 02:33 Nucleated RBC % (auto) 0 % 05/08/23 02:33 Nucleated RBCs # 0.0 /100WBC 05/08/23 02:33 APTT 69.0 SECONDS (23.9-36.7) H 05/08/23 08:25 Sodium 135 mmol/L (136-145) L 05/08/23 02:33 Potassium 3.6 mmol/L (3.5-5.1) 05/08/23 02:33 Chloride 104 mmol/L (98-107) 05/08/23 02:33 Carbon Dioxide 17 mmol/L (22-29) L 05/08/23 02:33 Anion Gap 17.6 (5-19) 05/08/23 02:33 BUN 15 mg/dL (6-20) 05/08/23 02:33 Creatinine 0.8 mg/dL (0.7-1.2) 05/08/23 02:33 GFR Calculation 103.2 mL/min (90-130) 05/08/23 02:33 Glucose 230 mg/dL (65-115) H 05/08/23 02:33 POC Glucose 271 mg/dL (70-110) H 05/08/23 17:02 Estimat Average Glucose 269 05/05/23 17:35 Hemoglobin A1c 11.0 % (4.0-6.0) H 05/05/23 17:35 Calculated Osmolality 288 mOsm/kg (285-295) 05/08/23 02:33 Lactic Acid 1.7 mmol/L (0.5-2.2) 05/05/23 17:35 Calcium 8.0 mg/dL (8.5-10.5) L 05/08/23 02:33 Phosphorus 2.0 mg/dL (2.5-4.5) L 05/08/23 02:33 Magnesium 2.0 mg/dL (1.7-2.3) 05/08/23 02:33 Total Bilirubin 0.5 mg/dL (0.15-1.2) 05/08/23 02:33 GGT 21 U/L (8-61) 05/05/23 17:35 AST 18 U/L (0-40) 05/08/23 02:33 ALT 24 U/L (0-41) 05/08/23 02:33 Alkaline Phosphatase 80 U/L (40-130) 05/08/23 02:33 Creatine Kinase 457 U/L (39-308) H* 05/05/23 17:35 Troponin T Gen 5 ng/L 2054 ng/L (0-15) H* 05/07/23 09:47 Troponin T Baseline 2216 ng/L (0-15) H* 05/05/23 17:35 Troponin T 120 Minute 2128 ng/L (0-15) H 05/05/23 19:35 Delta Troponin T -88 ABS# (0-10) L 05/05/23 19:35 Troponin T Hi Sens 6Hr 2459 ng/L (0-15) H 05/05/23 22:25 Troponin T Hi Sens 6Hr Delta 243 ng/L (0-12) H* 05/05/23 22:25 NT-Pro-B Natriuret Pep 4710 pg/mL (0-125) H 05/06/23 06:28 Total Protein 5.3 g/dL (6.6-8.7) L 05/08/23 02:33 Albumin 2.7 g/dL (3.5-5.2) L 05/08/23 02:33 Globulin 2.6 g/dL (1.3-4.6) 05/08/23 02:33 Triglycerides 257 mg/dL (0-150) H 05/05/23 17:35 Cholesterol 278 mg/dL (0-200) H 05/05/23 17:35 LDL Cholesterol, Calc 173 mg/dL (50-129) H 05/05/23 17:35 HDL Cholesterol 54 mg/dL (60-100) L 05/05/23 17:35 LDL/HDL Ratio 3.20 RATIO (0.00-3.22) 05/05/23 17:35 Cholesterol/HDL Ratio 5.15 mg/dL (1.0-5.00) H 05/05/23 17:35 Procalcitonin 0.54 ng/mL (0-0.5) H 05/05/23 17:35 TSH 0.66 uIU/mL (0.27-4.20) 05/05/23 17:35 A&P Assessment and plan (1) ST elevation myocardial infarction (STEMI) in recovery phase: Patient has severe two-vessel coronary disease involving the proximal LAD. Severe LV systolic dysfunction (2) Ischemic cardiomyopathy: LV ejection fraction was around 30% by echocardiogram. Patient may require a LifeVest as a bridge to towards ICD, once he is discharged. (3) Diabetic ketoacidosis: The DKA seems to be properly treated. May continue on the current management. (4) Hypertension: Blood pressure currently seems to be in the normal range. May restart losartan if the patient can tolerate Qualifiers: Hypertension type: essential hypertension Qualified Code(s): I10 - Essential (primary) hypertension (5) Dyslipidemia: May continue on the current medications. (6) Acute kidney injury: The BUN and the creatinine levels are back to normal at this time. May continue on the current measures. Plan I discussed with Dr. Perdue regarding his further management. Because of the complexity of the LAD lesion, it was thought to be appropriate to consider surgical opinion regarding his further management. Since we b do not have a surgical team at this point, I contacted Dr. Kesy at the [facility]. Dr. Keys is willing to take him to consider surgical revascularization. If they decide to do PCI, that is going to be a complex coronary intervention and may be better performed in a facility with the surgical backup. Discussed these issues with the patient which she seems understand well. Discussed the recommendations with the Dr. Gordon. Attestations Medical Necessity Statement*: Patient requires continued hospital stay for close monitoring and further management Coding Level of Care Code [address] elevation myocardial infarction (STEMI) in recovery phase I21.3 Ischemic cardiomyopathy I25.5 Diabetic ketoacidosis E11.10 Hypertension I10 Hypertension type: essential hypertension Dyslipidemia E78.5 Acute kidney injury N17.9
--- NOTE | 2023-05-08 19:45 | PC.NURSE ---
Shift summary: Pt had no complaints of pain, or dizziness. His only complaint is the raw spot on his upper lip from the N/V prior to admit. He does have lanolin at beside for this. 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 Lantus and the moderate sliding scale are keeping his blood sugars under control. 1300ml of clear yellow urinary output noted this shift. HIs right groin is soft with no bleeding or hematomas.
--- NOTE | 2023-05-08 19:47 | PM.PN ---
Subjective Subjective: Patient was seen this morning, no nausea, no vomiting, no fevers, no chills, no abdominal pain, he is awaiting his cardiac catheterization this morning Vitals/I&O/Wt Last Vital Signs Temp 98.8 F 05/08/23 08:15 Pulse 80 05/08/23 17:30 Resp 21 H 05/08/23 17:30 BP 127/86 05/08/23 17:30 Pulse Ox 92 05/08/23 17:30 O2 Del Method Room Air 05/08/23 17:30 05/08/23 05/08/23 05/08/23 06:59 14:59 22:59 Intake Total 758.7 / 758.7 400 / 1158.7 Output Total 1250 / 2650 1350 / 1350 700 / 2050 Balance -1250 / 309.580 -591.3 / -591.3 -300 / -891.3 Weight last 48 hrs Weight 88.904 kg Physical Exam Const: COMMON NORMALS: no acute distress and patient oriented x3 Resp: COMMON NORMALS: normal respiratory effort, No retractions, No use of accessory muscles and clear to auscultation bilaterally AUSCULTATION: clear to auscultation bilaterally Cardio: COMMON NORMALS: regular rate, regular rhythm, S1 normal heart sound present and S2 normal heart sound present RATE: regular rate RHYTHM: regular rhythm HEART SOUNDS: S1 normal heart sound present and S2 normal heart sound present GI: COMMON NORMALS: Normal to inspection, nondistended, normoactive bowel sounds present and non-tender Extremity: COMMON NORMALS: no pedal edema Neuro: COMMON NORMALS: patient oriented x3 Psych: COMMON NORMALS: mental status grossly normal Data 05/08/23 02:33 05/08/23 02:33 A&P Assessment and plan (1) Diabetic ketoacidosis: (2) ST elevation myocardial infarction (STEMI) in recovery phase: (3) Acute kidney injury: (4) Ischemic cardiomyopathy: (5) Dyslipidemia: (6) T2DM (type 2 diabetes mellitus): (7) Recent non-ST elevation myocardial infarction: Plan Diabetic ketoacidosis, resolved ? Continue Lantus 10 units subcut every 24 hours, low-dose sliding scale ? Full code, ? Lovenox for DVT prophylaxis ? Pseudohyponatremia, monitor serum sodium likely secondary to hyperglycemia, ? Leukocytosis, likely reactive, resolved follow blood cultures, so far negative, right upper quadrant ultrasound within normal limits, STEMI, completed infarct, in recovery phase, ? Unfortunately outside hospital no EKG or troponin series were obtained before he was transferred, EKG here showed ST elevations, with troponins over 2000, positive delta troponin, managed with aspirin, statin, Plavix, cardiology consultation ? Ischemic cardiomyopathy ? Concerns for likely acute event was 3 to 4 days ago, no chest pain, just severe nausea vomiting ? Patient was adamant he has not stopped taking his aspirin, Plavix ? Is a poorly controlled diabetic ? Coronary angiogram in 2019 showed two-vessel disease status post stenting x2, LAD, left circumflex Patient's cath in 07/17/2018 -Conclusions ? There is severe coronary artery disease with significant two vessel disease. Separate ostia of both LAD and LCx. Due to tortuosity of subclavian artery we were not able engage LAD separate ostia therefore we switched to Right femoral approach. ? Mid Left Anterior Descending Coronary Artery was treated with Drug Eluting Stent and Balloon. Ostial spasm if LAD was observed as well. ? Mid Circumflex Coronary Artery was treated with Balloon and Drug Eluting Stent. ? Indication: Unstable NSTEMI with non sustained VT. ? Cardiac echocardiogram ??CONCLUSIONS ?Multiple wall motion abnormalities with a diminished LV ejection ?fraction of 36%. ?Mildly dilated LV cavity ?No gross valvular abnormalities ?Trivial pericardial effusion ?Compared to the study from 07/17/2018, the LV dysfunction is new ?. There is a significant drop in the LV ejection fraction from ?60% to 36%. ? Plan, ?Cardiac catheterization this morning ? Heparin drip ? Aspirin, Plavix, ? Blood pressures are soft, but he can tolerate we will consider beta-rachna, ? Continue statin, ? Monitor cardiac status closely, ? Full code, ? Heparin drip per DVT prophylaxis Attestations Medical Necessity Statement*: Patient requires hospitalization for STEMI, complete infarct in the recovery phase, awaiting coronary angiography Diagnoses Diabetic ketoacidosis E11.10 ST elevation myocardial infarction (STEMI) in recovery phase I21.3 Acute kidney injury N17.9 Ischemic cardiomyopathy I25.5 Dyslipidemia E78.5 T2DM (type 2 diabetes mellitus) E11.9 Recent non-ST elevation myocardial infarction
[2023-05-08] MEDS: atorvastatin 40 mg Tablet PO (21:43)
[2023-05-09] VITALS (13 sets, daily range): BP systolic 109–124; BP diastolic 66–82; PULSE 75–89; RESP 17–23; TEMP 36.6–37.2; O2SAT 91–95
[2023-05-09 04:53] LABS: Basophils % 0.1 %; Eosinophils # 0.1 10^3/uL (0.0-0.8); Eosinophils % 1.4 %; Hematocrit 40.5 % (37-53); Lymphocytes # 2.5 10^3/uL (0.8-4.8); Lymphocytes % 31.9 %; Mean Corpuscular HGB Conc 33.8 g/dL (30-55); Mean Corpuscular Hemoglobin 28.3 pg (27-33); Mean Corpuscular Volume 83.7 fl (82-101); Mean Platelet Volume 9.2 fL (7.4-10.4); Monocytes # 0.7 10^3/uL (0.2-0.9); Monocytes % 9.2 %; Nucleated Red Blood Cells % 0 %; Platelet Count 254 10^3/cmm (157-399); Red Blood Count 4.84 10^6/uL (3.85-5.65); Red Cell Distribution Width 12.4 % (12.1-15.1)
[2023-05-09 05:23] LABS: Alanine Aminotransferase 21 U/L (0-41); Albumin Level 2.8 g/dL (3.5-5.2); Alkaline Phosphatase 82 U/L (40-130); Anion Gap 17.5 (5-19); Aspartate Amino Transferase 17 U/L (0-40); Blood Urea Nitrogen 10 mg/dL (6-20); Calcium 8.1 mg/dL (8.5-10.5); Carbon Dioxide 19 mmol/L (22-29); Chloride 105 mmol/L (98-107); Globulin 2.1 g/dL (1.3-4.6); Glomerular Filtration Rate 143.8 mL/min (90-130); Glucose 157 mg/dL (65-115); Magnesium 1.8 mg/dL (1.7-2.3); Osmolality Calculated 288 mOsm/kg (285-295); Phosphorus 2.8 mg/dL (2.5-4.5); Potassium 3.5 mmol/L (3.5-5.1); Sodium 138 mmol/L (136-145); Total Bilirubin 0.7 mg/dL (0.15-1.2); Total Protein 4.9 g/dL (6.6-8.7)
[2023-05-09 06:27] LABS: Glucose Point of Care 154 mg/dL (70-110)
[2023-05-09] MEDS: sucralfate 1 gm/10 mL Oral Liq UDC PO ×3 (06:34→21:00)
[2023-05-09] MEDS: FUROsemide 20 mg Tablet PO (08:50)
[2023-05-09] MEDS: insulin lispro 100 unit/1 mL SUBCUT ×3 (08:52→18:21)
[2023-05-09] MEDS: clopidogrel 75 mg Tablet PO (08:53)
[2023-05-09] MEDS: losartan 50 mg Tablet 25 MG PO (08:53)
[2023-05-09] MEDS: carvedilol 6.25 mg Tablet PO ×2 (08:53→18:21)
[2023-05-09] MEDS: aspirin 81 mg EC Tablet PO (08:53)
[2023-05-09 12:04] LABS: Glucose Point of Care 198 mg/dL (70-110)
--- NOTE | 2023-05-09 12:08 | PM.PN ---
Subjective Subjective: Patient was examined this morning, denies any chest pain this morning, found to have diffuse disease in the proximal and mid segment of the left anterior descending artery, circumflex artery was found to be totally occluded after giving off the first obtuse marginal branch, the first obtuse marginal artery was found to have a elongated proximal lesion involving the ostium, right coronary artery did not have any significant stenotic lesions, cardiology has spoken to [facility] for transfer, he has been accepted, he is awaiting a bed, patient is aware and agreeable, Vitals/I&O/Wt Last Vital Signs Temp 97.9 F 05/09/23 08:10 Pulse 87 05/09/23 08:10 Resp 18 05/09/23 08:10 BP 124/77 05/09/23 08:53 Pulse Ox 94 05/09/23 08:10 O2 Del Method Room Air 05/09/23 08:10 05/08/23 05/09/23 05/09/23 22:59 06:59 14:59 Intake Total 640 / 1398.7 150 / 1548.7 120 / 120 Output Total 1300 / 2650 500 / 3150 Balance -660 / -1251.3 -350 / -1601.3 120 / 120 Physical Exam Const: COMMON NORMALS: no acute distress and patient oriented x3 Resp: COMMON NORMALS: normal respiratory effort, No retractions, No use of accessory muscles and clear to auscultation bilaterally AUSCULTATION: clear to auscultation bilaterally Cardio: COMMON NORMALS: regular rate, regular rhythm, S1 normal heart sound present and S2 normal heart sound present RATE: regular rate RHYTHM: regular rhythm HEART SOUNDS: S1 normal heart sound present and S2 normal heart sound present GI: COMMON NORMALS: Normal to inspection, nondistended, normoactive bowel sounds present and non-tender Extremity: COMMON NORMALS: no pedal edema Neuro: COMMON NORMALS: patient oriented x3 Psych: COMMON NORMALS: mental status grossly normal Data 05/09/23 04:44 05/09/23 04:44 A&P Assessment and plan (1) Diabetic ketoacidosis: (2) ST elevation myocardial infarction (STEMI) in recovery phase: (3) Acute kidney injury: (4) Ischemic cardiomyopathy: (5) Dyslipidemia: (6) T2DM (type 2 diabetes mellitus): (7) Recent non-ST elevation myocardial infarction: Plan Diabetic ketoacidosis, resolved ? Continue Lantus 10 units subcut every 24 hours, low-dose sliding scale ? Full code, ? Lovenox for DVT prophylaxis ? Pseudohyponatremia, monitor serum sodium likely secondary to hyperglycemia, ? Leukocytosis, likely reactive, resolved follow blood cultures, so far negative, right upper quadrant ultrasound within normal limits, STEMI, completed infarct, in recovery phase, ? Unfortunately outside hospital no EKG or troponin series were obtained before he was transferred, EKG here showed ST elevations, with troponins over 2000, positive delta troponin, managed with aspirin, statin, Plavix, cardiology consultation ? Ischemic cardiomyopathy ? Concerns for likely acute event was 3 to 4 days ago, no chest pain, just severe nausea vomiting ? Patient was adamant he has not stopped taking his aspirin, Plavix ? Is a poorly controlled diabetic ? Coronary angiogram in 2018 showed two-vessel disease status post stenting x2, LAD, left circumflex Patient's cath in 07/17/2018 -Conclusions ? There is severe coronary artery disease with significant two vessel disease. Separate ostia of both LAD and LCx. Due to tortuosity of subclavian artery we were not able engage LAD separate ostia therefore we switched to Right femoral approach. ? Mid Left Anterior Descending Coronary Artery was treated with Drug Eluting Stent and Balloon. Ostial spasm if LAD was observed as well. ? Mid Circumflex Coronary Artery was treated with Balloon and Drug Eluting Stent. ? Indication: Unstable NSTEMI with non sustained VT. ? Cardiac echocardiogram ??CONCLUSIONS ?Multiple wall motion abnormalities with a diminished LV ejection ?fraction of 36%. ?Mildly dilated LV cavity ?No gross valvular abnormalities ?Trivial pericardial effusion ?Compared to the study from 07/17/2018, the LV dysfunction is new ?. There is a significant drop in the LV ejection fraction from ?60% to 36%., ? Coronary angiography showing, ?diffuse disease in the proximal and mid segment of the left anterior descending artery, circumflex artery was found to be totally occluded after giving off the first obtuse marginal branch, the first obtuse marginal artery was found to have a elongated proximal lesion involving the ostium, right coronary artery did not have any significant stenotic lesions ? Plan, ? Heparin drip ? Aspirin, Plavix, ? Blood pressures are soft, but he can tolerate we will consider beta-rachna, ? Continue statin, ? Monitor cardiac status closely, ? Full code, ? Heparin drip per DVT prophylaxis Attestations Medical Necessity Statement*: Patient requires hospitalization for STEMI, requiring transfer to tertiary level center for surgical consideration Diagnoses Diabetic ketoacidosis E11.10 ST elevation myocardial infarction (STEMI) in recovery phase I21.3 Acute kidney injury N17.9 Ischemic cardiomyopathy I25.5 Dyslipidemia E78.5 T2DM (type 2 diabetes mellitus) E11.9 Recent non-ST elevation myocardial infarction
[2023-05-09] MEDS: insulin glargine 100 units/1 mL 10 UNIT SUBCUT (14:21)
[2023-05-09] MEDS: pantoprazole 40 mg SDV IVP ×2 (14:22→21:00)
[2023-05-09 17:10] LABS: Glucose Point of Care 226 mg/dL (70-110)
--- NOTE | 2023-05-09 17:31 | P.PN_ITS ---
Subjective Subjective: Patient had a cardiac catheterization yesterday. He was found to have multiple high-grade lesions in the proximal to mid LAD. There is a left circumflex artery was found to have separate ostia. After giving off the first obtuse marginal branch, the artery appeared to be completely occluded. The first obtuse marginal branch was found to have a high-grade tubular lesion proximally involving the ostium. Patient currently feeling better. Medications: Medication Review Details: Current Medications Acetaminophen (Acetaminophen 325 Mg Tablet) 650 mg PO Q6H PRN PRN Reason: Mild/Mod Pain Or Temp >/= 101 Aspirin (Aspirin 81 Mg Ec Tablet) 81 mg PO DAILY [facility] Last Admin: 05/09/23 08:53 Dose: 81 mg Atorvastatin Calcium (Atorvastatin 40 Mg Tablet) 40 mg PO BEDTIME [facility] Last Admin: 05/08/23 21:43 Dose: 40 mg Carvedilol (Carvedilol 6.25 Mg Tablet) 6.25 mg PO BID [facility] Last Admin: 05/09/23 08:53 Dose: 6.25 mg Clopidogrel Bisulfate (Clopidogrel 75 Mg Tablet) 75 mg PO DAILY [facility] Last Admin: 05/09/23 08:53 Dose: 75 mg Dextrose (Dextrose 50% Syringe 50 Ml) 25 ml IVP ONCE PRN; Protocol PRN Reason: hypoglycemia protocol Dextrose (Dextrose 50% Syringe 50 Ml) 50 ml IVP PRN PRN; Protocol PRN Reason: hypoglycemia protocol Furosemide (Furosemide 20 Mg Tablet) 20 mg PO DAILY@0800 [facility] Last Admin: 05/09/23 08:50 Dose: 20 mg Heparin Sodium (Porcine) (Heparin 5,000 Unit/Ml Inj 1 Ml) 0 unit IV PRN PRN; Protocol PRN Reason: Heparin weight-base protocol Last Admin: 05/05/23 21:26 Dose: 4,400 unit Heparin Sodium/Sodium Chloride (Heparin Drip) 25,000 unit in 500 mls @ 0 mls/hr IV .Q0M [facility]; Protocol Last Titration: 05/08/23 10:30 Dose: Infused Dextrose (D5w) 500 mls @ 0 mls/hr IV ONCE PRN; Protocol PRN Reason: Adult Acute Hypoglycemia Prot Insulin Glargine (Insulin Glargine 100 Units/1 Ml) 10 unit SUBCUT Q24H [facility] Last Admin: 05/09/23 14:21 Dose: 10 unit Insulin Human Lispro (Insulin Lispro 100 Unit/1 Ml) 0 unit SUBCUT TIDWM [facility]; Protocol Last Admin: 05/09/23 14:22 Dose: 6 unit Lanolin (Lanolin Oint 7 Gm) 1 applic TOPICAL PRN PRN PRN Reason: DRYNESS Lorazepam (Lorazepam 2 Mg/Ml Inj 1 Ml) 0.5 mg IVP Q4H PRN PRN Reason: nuasea Losartan Potassium (Losartan 50 Mg Tablet) 25 mg PO DAILY [facility] Last Admin: 05/09/23 08:53 Dose: 25 mg Metoclopramide HCl (Metoclopramide 5 Mg/Ml Sdv 2 Ml) 5 mg IVP Q6H PRN PRN Reason: NAUSEA AND VOMITING Last Admin: 05/07/23 04:04 Dose: 5 mg Morphine Sulfate (Morphine 4 Mg/Ml Sdv 1 Ml) 2 mg IVP Q4H PRN PRN Reason: SEVERE PAIN Ondansetron HCl (Ondansetron 2 Mg/Ml Sdv 2 Ml) 8 mg IVP Q6H PRN PRN Reason: NAUSEA AND VOMITING Last Admin: 05/07/23 20:11 Dose: 8 mg Pantoprazole Sodium (Pantoprazole 40 Mg Sdv) 40 mg IVP Q12H [facility] Last Admin: 05/09/23 14:22 Dose: 40 mg Promethazine HCl (Promethazine 25 Mg/Ml Sdv 1 Ml) 12.5 mg IM Q6H PRN PRN Reason: NAUSEA Last Admin: 05/06/23 08:50 Dose: 12.5 mg Scopolamine (Scopolamine 1.5 Patch) 1 patch TRANSDERMA Q3D [facility] Last Admin: 05/07/23 10:10 Dose: 1 patch Spironolactone (Spironolactone 25 Mg Tablet) 25 mg PO DAILY [facility] Last Admin: 05/05/23 20:19 Dose: 25 mg Sucralfate (Sucralfate 1 Gm/10 Ml Oral Liq Udc) 1 gm PO AC&BEDTIME [facility] Last Admin: 05/09/23 13:59 Dose: Not Given Vitals/I&O/Wt Last Vital Signs Temp 98.0 F 05/09/23 12:18 Pulse 86 05/09/23 12:18 Resp 23 H 05/09/23 12:18 BP 117/74 05/09/23 12:18 Pulse Ox 92 05/09/23 12:18 O2 Del Method Room Air 05/09/23 12:18 05/09/23 05/09/23 05/09/23 06:59 14:59 22:59 Intake Total 150 / 1548.7 480 / 480 Output Total 500 / 3150 900 / 900 Balance -350 / -1601.3 -420 / -420 Physical Exam Narrative: GENERAL: The patient is alert and oriented times three. Not in any acute distress. HEENT: No significant pallor, icterus or lymphadenopathy.Oral cavity: There are no mucous membrane lesions. NECK: Trachea appears to be central. No masses noted. No JVD or thyromegaly appreciated. RESPIRATORY: Chest is symmetrical. No intercostals muscle retraction or any accessory muscle activation. There is no chest wall tenderness. Breath sounds are heard bilaterally. No rales or rhonchi heard. No evidence of any consolidation. BREASTS: Deferred. HEART: The heart sounds are normal. No S3 or S4. No significant murmurs. No pericardial rub ABDOMEN: No vessel pulsations or distention. No tenderness. No organomegaly appreciated. Bowel sounds are normally heard. : Deferred. RECTAL: Deferred. LYMPHATIC: No lymphadenopathy noted in the neck. EXTREMITIES: No edema or cyanosis. No clubbing. MUSCULOSKELETAL: No acute joint deformities or swelling SKIN: There are no significant rashes or ecchymosis NEUROPSYCHIATRIC: The patient is alert and oriented x3. Appears to be in a good mood. No tremors or rigidity noted. Data 05/09/23 04:44 05/09/23 04:44 Other Labs: Laboratory Last Values WBC 7.90 10^3/uL (3.29-11.43) 05/09/23 04:44 RBC 4.84 10^6/uL (3.85-5.65) 05/09/23 04:44 Hgb 13.70 g/dL (11.27-16.99) 05/09/23 04:44 Hct 40.5 % (37-53) 05/09/23 04:44 MCV 83.7 fl (82-101) 05/09/23 04:44 MCH 28.3 pg (27-33) 05/09/23 04:44 MCHC 33.8 g/dL (30-55) 05/09/23 04:44 RDW 12.4 % (12.1-15.1) 05/09/23 04:44 Plt Count 254 10^3/cmm (157-399) 05/09/23 04:44 MPV 9.2 fL (7.4-10.4) 05/09/23 04:44 Neut % (Auto) 57.0 % 05/09/23 04:44 Lymph % (Auto) 31.9 % 05/09/23 04:44 Spalding % (Auto) 9.2 % 05/09/23 04:44 Eos % (Auto) 1.4 % 05/09/23 04:44 Baso % (Auto) 0.1 % 05/09/23 04:44 Neut # (Auto) 4.50 10^3/uL (1.8-7.7) 05/09/23 04:44 Lymph # (Auto) 2.5 10^3/uL (0.8-4.8) 05/09/23 04:44 Spalding # (Auto) 0.7 10^3/uL (0.2-0.9) 05/09/23 04:44 Eos # (Auto) 0.1 10^3/uL (0.0-0.8) 05/09/23 04:44 Baso # (Auto) 0.0 10^3/uL (0.0-0.1) 05/09/23 04:44 Nucleated RBC % (auto) 0 % 05/09/23 04:44 Nucleated RBCs # 0.0 /100WBC 05/09/23 04:44 APTT 69.0 SECONDS (23.9-36.7) H 05/08/23 08:25 Sodium 138 mmol/L (136-145) 05/09/23 04:44 Potassium 3.5 mmol/L (3.5-5.1) 05/09/23 04:44 Chloride 105 mmol/L (98-107) 05/09/23 04:44 Carbon Dioxide 19 mmol/L (22-29) L 05/09/23 04:44 Anion Gap 17.5 (5-19) 05/09/23 04:44 BUN 10 mg/dL (6-20) 05/09/23 04:44 Creatinine 0.6 mg/dL (0.7-1.2) L 05/09/23 04:44 GFR Calculation 143.8 mL/min (90-130) H 05/09/23 04:44 Glucose 157 mg/dL (65-115) H 05/09/23 04:44 POC Glucose 226 mg/dL (70-110) H 05/09/23 16:38 Estimat Average Glucose 269 05/05/23 17:35 Hemoglobin A1c 11.0 % (4.0-6.0) H 05/05/23 17:35 Calculated Osmolality 288 mOsm/kg (285-295) 05/09/23 04:44 Lactic Acid 1.7 mmol/L (0.5-2.2) 05/05/23 17:35 Calcium 8.1 mg/dL (8.5-10.5) L 05/09/23 04:44 Phosphorus 2.8 mg/dL (2.5-4.5) 05/09/23 04:44 Magnesium 1.8 mg/dL (1.7-2.3) 05/09/23 04:44 Total Bilirubin 0.7 mg/dL (0.15-1.2) 05/09/23 04:44 GGT 21 U/L (8-61) 05/05/23 17:35 AST 17 U/L (0-40) 05/09/23 04:44 ALT 21 U/L (0-41) 05/09/23 04:44 Alkaline Phosphatase 82 U/L (40-130) 05/09/23 04:44 Creatine Kinase 457 U/L (39-308) H* 05/05/23 17:35 Troponin T Gen 5 ng/L 2054 ng/L (0-15) H* 05/07/23 09:47 Troponin T Baseline 2216 ng/L (0-15) H* 05/05/23 17:35 Troponin T 120 Minute 2128 ng/L (0-15) H 05/05/23 19:35 Delta Troponin T -88 ABS# (0-10) L 05/05/23 19:35 Troponin T Hi Sens 6Hr 2459 ng/L (0-15) H 05/05/23 22:25 Troponin T Hi Sens 6Hr Delta 243 ng/L (0-12) H* 05/05/23 22:25 NT-Pro-B Natriuret Pep 4710 pg/mL (0-125) H 05/06/23 06:28 Total Protein 4.9 g/dL (6.6-8.7) L 05/09/23 04:44 Albumin 2.8 g/dL (3.5-5.2) L 05/09/23 04:44 Globulin 2.1 g/dL (1.3-4.6) 05/09/23 04:44 Triglycerides 257 mg/dL (0-150) H 05/05/23 17:35 Cholesterol 278 mg/dL (0-200) H 05/05/23 17:35 LDL Cholesterol, Calc 173 mg/dL (50-129) H 05/05/23 17:35 HDL Cholesterol 54 mg/dL (60-100) L 05/05/23 17:35 LDL/HDL Ratio 3.20 RATIO (0.00-3.22) 05/05/23 17:35 Cholesterol/HDL Ratio 5.15 mg/dL (1.0-5.00) H 05/05/23 17:35 Procalcitonin 0.54 ng/mL (0-0.5) H 05/05/23 17:35 TSH 0.66 uIU/mL (0.27-4.20) 05/05/23 17:35 A&P Assessment and plan (1) ST elevation myocardial infarction (STEMI) in recovery phase: Patient has severe two-vessel coronary disease involving the proximal LAD. Severe LV systolic dysfunction. Currently he seems to be stable hemodynamically. Patient is awaiting transfer to the [facility] in [place] to consider bypass surgery versus complex coronary intervention. Dr. Keys accepted his transfer (2) Ischemic cardiomyopathy: LV ejection fraction was around 30% by echocardiogram. Patient may require a LifeVest as a bridge to towards ICD, once he is discharged. (3) Diabetic ketoacidosis: The DKA seems to be properly treated. May continue on the current management. (4) Hypertension: Blood pressure currently seems to be in the normal range. May restart losartan if the patient can tolerate Qualifiers: Hypertension type: essential hypertension Qualified Code(s): I10 - Essential (primary) hypertension (5) Dyslipidemia: May continue on the current medications. (6) Acute kidney injury: The BUN and the creatinine levels are back to normal at this time. May continue on the current measures. Plan Patient is awaiting transfer to [place]. We will continue on the current medications Attestations Medical Necessity Statement*: Possible transfer to the [facility] today or tomorrow Coding Level of Care Code [address] elevation myocardial infarction (STEMI) in recovery phase I21.3 Ischemic cardiomyopathy I25.5 Diabetic ketoacidosis E11.10 Hypertension I10 Hypertension type: essential hypertension Dyslipidemia E78.5 Acute kidney injury N17.9
[2023-05-09 20:35] LABS: Glucose Point of Care 97 mg/dL (70-110)
[2023-05-09] MEDS: atorvastatin 40 mg Tablet PO (21:00)
[2023-05-10] VITALS (11 sets, daily range): BP systolic 96–116; BP diastolic 62–71; PULSE 81–89; RESP 16–19; TEMP 36.7–37.2; O2SAT 95–98; BMI 26.2
[2023-05-10 04:21] LABS: Basophils % 0.2 %; Eosinophils # 0.2 10^3/uL (0.0-0.8); Eosinophils % 2.2 %; Hematocrit 38.1 % (37-53); Lymphocytes # 3.1 10^3/uL (0.8-4.8); Lymphocytes % 37.5 %; Mean Corpuscular HGB Conc 33.3 g/dL (30-55); Mean Corpuscular Hemoglobin 28.6 pg (27-33); Mean Corpuscular Volume 85.8 fl (82-101); Mean Platelet Volume 9.3 fL (7.4-10.4); Monocytes # 0.8 10^3/uL (0.2-0.9); Monocytes % 10.1 %; Neutrophils # 4.07 10^3/uL (1.8-7.7); Neutrophils % 49.5 %; Nucleated Red Blood Cells % 0 %; Platelet Count 271 10^3/cmm (157-399); Red Blood Count 4.44 10^6/uL (3.85-5.65); Red Cell Distribution Width 12.4 % (12.1-15.1); White Blood Count 8.22 10^3/uL (3.29-11.43)
[2023-05-10 04:47] LABS: Alanine Aminotransferase 20 U/L (0-41); Albumin Level 2.5 g/dL (3.5-5.2); Alkaline Phosphatase 76 U/L (40-130); Anion Gap 15.1 (5-19); Aspartate Amino Transferase 18 U/L (0-40); Blood Urea Nitrogen 8 mg/dL (6-20); Calcium 8.2 mg/dL (8.5-10.5); Carbon Dioxide 25 mmol/L (22-29); Chloride 102 mmol/L (98-107); Creatinine Clr Calc Pharmacy 149.9045; Globulin 2.5 g/dL (1.3-4.6); Glomerular Filtration Rate 120.4 mL/min (90-130); Glucose 108 mg/dL (65-115); Magnesium 1.8 mg/dL (1.7-2.3); Osmolality Calculated 287 mOsm/kg (285-295); Phosphorus 3.7 mg/dL (2.5-4.5); Potassium 3.1 mmol/L (3.5-5.1); Sodium 139 mmol/L (136-145); Total Bilirubin 0.5 mg/dL (0.15-1.2)
[2023-05-10] MEDS: sucralfate 1 gm/10 mL Oral Liq UDC PO ×2 (05:57→12:09)
[2023-05-10 06:28] LABS: Glucose Point of Care 129 mg/dL (70-110)
[2023-05-10] MEDS: clopidogrel 75 mg Tablet PO (08:47)
[2023-05-10] MEDS: carvedilol 6.25 mg Tablet PO (08:47)
[2023-05-10] MEDS: potassium chloride ER 20 mEq Tablet 40 MEQ PO (08:47)
[2023-05-10] MEDS: aspirin 81 mg EC Tablet PO (08:47)
[2023-05-10] MEDS: losartan 50 mg Tablet 25 MG PO (08:47)
[2023-05-10] MEDS: FUROsemide 20 mg Tablet PO (08:47)
[2023-05-10] MEDS: scopolamine 1.5 Patch 1 PATCH TRANSDERMA (09:49)
--- NOTE | 2023-05-10 11:46 | P.PN_ITS ---
Subjective Subjective: Patient was seen this morning, denies any chest pain, no shortness of breath, awaiting a bed at [facility], has no complaints this morning Vitals/I&O/Wt Last Vital Signs Temp 99.0 F 05/10/23 11:36 Pulse 85 05/10/23 11:36 Resp 16 05/10/23 11:36 BP 108/65 05/10/23 11:36 Pulse Ox 96 05/10/23 11:36 O2 Del Method Room Air 05/10/23 11:36 05/09/23 05/10/23 05/10/23 22:59 06:59 14:59 Intake Total 360 / 840 800 / 1640 120 / 120 Output Total 600 / 1500 Balance 360 / -60 200 / 140 120 / 120 Weight last 48 hrs Weight 87.543 kg Physical Exam Const: COMMON NORMALS: no acute distress and patient oriented x3 Resp: COMMON NORMALS: normal respiratory effort, No retractions, No use of accessory muscles and clear to auscultation bilaterally AUSCULTATION: clear to auscultation bilaterally Cardio: COMMON NORMALS: regular rate, regular rhythm, S1 normal heart sound present and S2 normal heart sound present RATE: regular rate RHYTHM: regular rhythm HEART SOUNDS: S1 normal heart sound present and S2 normal heart sound present GI: COMMON NORMALS: Normal to inspection, nondistended, normoactive bowel soun ds present and non-tender Extremity: COMMON NORMALS: no pedal edema Neuro: COMMON NORMALS: patient oriented x3 Psych: COMMON NORMALS: mental status grossly normal Data 05/10/23 03:27 05/10/23 03:27 A&P Assessment and plan (1) Diabetic ketoacidosis: (2) ST elevation myocardial infarction (STEMI) in recovery phase: (3) Acute kidney injury: (4) Ischemic cardiomyopathy: (5) Dyslipidemia: (6) T2DM (type 2 diabetes mellitus): (7) Recent non-ST elevation myocardial infarction: Plan Diabetic ketoacidosis, resolved ? Continue Lantus 10 units subcut every 24 hours, low-dose sliding scale ? Full code, ? Lovenox for DVT prophylaxis ? Pseudohyponatremia, monitor serum sodium likely secondary to hyperglycemia, ? Leukocytosis, likely reactive, resolved follow blood cultures, so far negative, right upper quadrant ultrasound within normal limits, STEMI, completed infarct, in recovery phase, ? Unfortunately outside hospital no EKG or troponin series were obtained before he was transferred, EKG here showed ST elevations, with troponins over 2000, positive delta troponin, managed with aspirin, statin, Plavix, cardiology consultation ? Ischemic cardiomyopathy ? Concerns for likely acute event was 3 to 4 days ago, no chest pain, just severe nausea vomiting ? Patient was adamant he has not stopped taking his aspirin, Plavix ? Is a poorly controlled diabetic ? Coronary angiogram in 2019 showed two-vessel disease status post stenting x2, LAD, left circumflex Patient's cath in 07/17/2018 -Conclusions ? There is severe coronary artery disease with significant two vessel disease. Separate ostia of both LAD and LCx. Due to tortuosity of subclavian artery we were not able engage LAD separate ostia therefore we switched to Right femoral approach. ? Mid Left Anterior Descending Coronary Artery was treated with Drug Eluting Stent and Balloon. Ostial spasm if LAD was observed as well. ? Mid Circumflex Coronary Artery was treated with Balloon and Drug Eluting Stent. ? Indication: Unstable NSTEMI with non sustained VT. ? Cardiac echocardiogram ??CONCLUSIONS ?Multiple wall motion abnormalities with a diminished LV ejection ?fraction of 36%. ?Mildly dilated LV cavity ?No gross valvular abnormalities ?Trivial pericardial effusion ?Compared to the study from 07/17/2018, the LV dysfunction is new ?. There is a significant drop in the LV ejection fraction from ?60% to 36%., ? Coronary angiography showing, ?diffuse disease in the proximal and mid segment of the left anterior descending artery, circumflex artery was found to be totally occluded after giving off the first obtuse marginal branch, the first obtuse marginal artery was found to have a elongated proximal lesion involving the ostium, right coronary artery did not have any significant stenotic lesions ? Plan, ? Aspirin, Plavix, ? Continue coreg ? Continue statin, ? Monitor cardiac status closely, ? Full code, ? lovenox per DVT prophylaxis, ? Cardiology spoke to cardiothoracic surgery at [facility], has been accepted, awaiting beds Attestations Medical Necessity Statement*: patient requires hospitalization for stemi, needing transfer to tertiary hospital for cardiac surgical consideration Diagnoses Diabetic ketoacidosis E11.10 ST elevation myocardial infarction (STEMI) in recovery phase I21.3 Acute kidney injury N17.9 Ischemic cardiomyopathy I25.5 Dyslipidemia E78.5 T2DM (type 2 diabetes mellitus) E11.9 Recent non-ST elevation myocardial infarction
[2023-05-10] MEDS: enoxaparin 40 mg/0.4 mL Syringe SUBCUT (12:09)
[2023-05-10] MEDS: insulin glargine 100 units/1 mL 10 UNIT SUBCUT (12:09)
[2023-05-10] MEDS: pantoprazole 40 mg SDV IVP (12:09)
[2023-05-10] MEDS: insulin lispro 100 unit/1 mL SUBCUT (12:10)
[2023-05-10 12:14] LABS: Glucose Point of Care 227 mg/dL (70-110)
--- NOTE | 2023-05-10 13:18 | PC.NURSE ---
Received a call from [facility] stating that the pt will be going to bed 347-1 and can call report to [phone]
--- NOTE | 2023-05-10 15:24 | PC.NURSE ---
Discharge Note Patient discharged to [[facility]] via [ambulance] accompanied by [[facility] Ambulance personnel]. Discharge instructions reviewed with patient and/or apprenticeship training representative. Mobile pharmacy medications and/or prescriptions provided. Belongings/home medications returned.
--- NOTE | 2023-06-06 12:16 | P.TS_ITS ---
Transfer Summary Providers Date of Admission: 05/05/23 16:25 Date of Discharge/Transfer: 06/06/23 Attending Provider at Admission: Brian Gordon MD Attending Provider at Transfer: Brian Gordon MD Primary Care Provider: Kiran Walton MD Transfer Plans: Anticipated date of transfer: 06/06/23 . Diagnoses at Discharge Discharge Diagnosis (1) Diabetic ketoacidosis: Status: Acute (2) ST elevation myocardial infarction (STEMI) in recovery phase: Status: Acute (3) Acute kidney injury: Status: Acute (4) Ischemic cardiomyopathy: Status: Acute (5) Dyslipidemia: Status: Acute (6) T2DM (type 2 diabetes mellitus): Status: Acute (7) Recent non-ST elevation myocardial infarction: Status: Acute Reason for Visit Reason for Visit DKA Hospital Course Hospital Course Indio Woodward is a 47 year old male with a past medical history of CAD status post stenting x1, history of type 2 diabetes mellitus, hypertension, hyperlipidemia, who presents to [facility] due to 72 hours of nausea, vomiting, diarrhea, denies any sick contacts, recent travel, no fevers, no chills, denies any drug use, does not have any specific abdominal pain, denies any coffee-ground emesis, no hematemesis, no bloody or black stools This is a 47-year-old male who was transferred from outside facility for diabetic ketoacidosis, moderate to the intensive care unit, anion gap closed, t ransition to subcut insulin and Lantus Patient's hospital course was complicated with STEMI, completed infarct, and recovery phase, unfortunately at outside hospital no EKG or troponin series were obtained, he had no chest pain complaints, his only symptom was intractable nausea and vomiting, here troponins were over 2000, EKG showing ST elevations, acute event might have been due to 4 days ago, echocardiogram showed EF 36%, with multiple wall motion abnormalities underwent coronary angiography during his hospitalization diffuse disease in the proximal and mid segment of the left anterior descending artery, circumflex artery was found to be totally occluded after giving off the first obtuse marginal branch, the first obtuse marginal artery was found to have a elongated proximal lesion involving the ostium, right coronary artery did not have any significant stenotic lesions -Cardiology recommended patient be evaluated for CABG, patient was transferred to [facility] for CABG evaluation Physical Exam Const: COMMON NORMALS: no acute distress and patient oriented x3 Resp: COMMON NORMALS: normal respiratory effort, No retractions, No use of accessory muscles and clear to auscultation bilaterally AUSCULTATION: clear to auscultation bilaterally Cardio: COMMON NORMALS: regular rate, regular rhythm, S1 normal heart sound present and S2 normal heart sound present RATE: regular rate RHYTHM: regular rhythm HEART SOUNDS: S1 normal heart sound present and S2 normal heart sound present GI: COMMON NORMALS: Normal to inspection, nondistended, normoactive bowel sounds present, Soft to palpation and non-tender PALPATION: Yes Soft to palpation Extremity: COMMON NORMALS: no pedal edema Neuro: COMMON NORMALS: patient oriented x3 Psych: COMMON NORMALS: mental status grossly normal TS Data Studies Completed and Pending Completed Studies During Hospitalization Category Date Time Status 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 echo complete* [id number] Stat Ultrasound 05/05/23 18:20 Completed US gall bladder [id number] Routine Ultrasound 05/05/23 16:44 Completed Laboratory Last Values WBC 8.22 10^3/uL (3.29-11.43) 05/10/23 03:27 RBC 4.44 10^6/uL (3.85-5.65) 05/10/23 03:27 Hgb 12.70 g/dL (11.27-16.99) 05/10/23 03:27 Hct 38.1 % (37-53) 05/10/23 03:27 MCV 85.8 fl (82-101) 05/10/23 03:27 MCH 28.6 pg (27-33) 05/10/23 03:27 MCHC 33.3 g/dL (30-55) 05/10/23 03:27 RDW 12.4 % (12.1-15.1) 05/10/23 03:27 Plt Count 271 10^3/cmm (157-399) 05/10/23 03:27 MPV 9.3 fL (7.4-10.4) 05/10/23 03:27 Neut % (Auto) 49.5 % 05/10/23 03:27 Lymph % (Auto) 37.5 % 05/10/23 03:27 [place] % (Auto) 10.1 % 05/10/23 03:27 Eos % (Auto) 2.2 % 05/10/23 03:27 Baso % (Auto) 0.2 % 05/10/23 03:27 Neut # (Auto) 4.07 10^3/uL (1.8-7.7) 05/10/23 03:27 Lymph # (Auto) 3.1 10^3/uL (0.8-4.8) 05/10/23 03:27 [place] # (Auto) 0.8 10^3/uL (0.2-0.9) 05/10/23 03:27 Eos # (Auto) 0.2 10^3/uL (0.0-0.8) 05/10/23 03:27 Baso # (Auto) 0.0 10^3/uL (0.0-0.1) 05/10/23 03:27 Nucleated RBC % (auto) 0 % 05/10/23 03:27 Nucleated RBCs # 0.0 /100WBC 05/10/23 03:27 APTT 69.0 SECONDS (23.9-36.7) H 05/08/23 08:25 Sodium 139 mmol/L (136-145) 05/10/23 03:27 Potassium 3.1 mmol/L (3.5-5.1) L 05/10/23 03:27 Chloride 102 mmol/L (98-107) 05/10/23 03:27 Carbon Dioxide 25 mmol/L (22-29) 05/10/23 03:27 Anion Gap 15.1 (5-19) 05/10/23 03:27 BUN 8 mg/dL (6-20) 05/10/23 03:27 Creatinine 0.7 mg/dL (0.7-1.2) 05/10/23 03:27 GFR Calculation 120.4 mL/min (90-130) 05/10/23 03:27 Glucose 108 mg/dL (65-115) 05/10/23 03:27 POC Glucose 227 mg/dL (70-110) H 05/10/23 11:40 Estimat Average Glucose 269 05/05/23 17:35 Hemoglobin A1c 11.0 % (4.0-6.0) H 05/05/23 17:35 Calculated Osmolality 287 mOsm/kg (285-295) 05/10/23 03:27 Lactic Acid 1.7 mmol/L (0.5-2.2) 05/05/23 17:35 Calcium 8.2 mg/dL (8.5-10.5) L 05/10/23 03:27 Phosphorus 3.7 mg/dL (2.5-4.5) 05/10/23 03:27 Magnesium 1.8 mg/dL (1.7-2.3) 05/10/23 03:27 Total Bilirubin 0.5 mg/dL (0.15-1.2) 05/10/23 03:27 GGT 21 U/L (8-61) 05/05/23 17:35 AST 18 U/L (0-40) 05/10/23 03:27 ALT 20 U/L (0-41) 05/10/23 03:27 Alkaline Phosphatase 76 U/L (40-130) 05/10/23 03:27 Creatine Kinase 457 U/L (39-308) H* 05/05/23 17:35 Troponin T Gen 5 ng/L 2054 ng/L (0-15) H* 05/07/23 09:47 Troponin T Baseline 2216 ng/L (0-15) H* 05/05/23 17:35 Troponin T 120 Minute 2128 ng/L (0-15) H 05/05/23 19:35 Delta Troponin T -88 ABS# (0-10) L 05/05/23 19:35 Troponin T Hi Sens 6Hr 2459 ng/L (0-15) H 05/05/23 22:25 Troponin T Hi Sens 6Hr Delta 243 ng/L (0-12) H* 05/05/23 22:25 NT-Pro-B Natriuret Pep 4710 pg/mL (0-125) H 05/06/23 06:28 Total Protein 5.0 g/dL (6.6-8.7) L 05/10/23 03:27 Albumin 2.5 g/dL (3.5-5.2) L 05/10/23 03:27 Globulin 2.5 g/dL (1.3-4.6) 05/10/23 03:27 Triglycerides 257 mg/dL (0-150) H 05/05/23 17:35 Cholesterol 278 mg/dL (0-200) H 05/05/23 17:35 LDL Cholesterol, Calc 173 mg/dL (50-129) H 05/05/23 17:35 HDL Cholesterol 54 mg/dL (60-100) L 05/05/23 17:35 LDL/HDL Ratio 3.20 RATIO (0.00-3.22) 05/05/23 17:35 Cholesterol/HDL Ratio 5.15 mg/dL (1.0-5.00) H 05/05/23 17:35 Procalcitonin 0.54 ng/mL (0-0.5) H 05/05/23 17:35 TSH 0.66 uIU/mL (0.27-4.20) 05/05/23 17:35 Radiology Impressions Gallbladder Ultrasound 05/05/23 16:44 IMPRESSION: No significant abnormality. Recent Clincial Data Last Vital Signs Temp 99.0 F 05/10/23 12:00 Pulse 83 05/10/23 15:27 Resp 17 05/10/23 15:27 BP 96/62 05/10/23 15:27 Pulse Ox 98 05/10/23 15:27 O2 Del Method Room Air 05/10/23 11:36 Vitals Last Vital Signs Temp 99.0 F 05/10/23 12:00 Pulse 83 05/10/23 15:27 Resp 17 05/10/23 15:27 BP 96/62 05/10/23 15:27 Pulse Ox 98 05/10/23 15:27 O2 Del Method Room Air 05/10/23 11:36 TS Medications Medications Discontinued Medications Acetaminophen (Acetaminophen 325 Mg Tablet) 650 mg PO Q6H PRN PRN Reason: Mild/Mod Pain Or Temp >/= 101 Aspirin (Aspirin 81 Mg Ec Tablet) 81 mg PO DAILY [facility] Last Admin: 05/10/23 08:47 Dose: 81 mg Aspirin (Aspirin 325 Mg Ec Tablet) 325 mg PO ONCE ONE Stop: 05/05/23 18:17 Last Admin: 05/05/23 20:20 Dose: 325 mg Atorvastatin Calcium (Atorvastatin 40 Mg Tablet) 40 mg PO BEDTIME [facility] Last Admin: 05/09/23 21:00 Dose: 40 mg Carvedilol (Carvedilol 6.25 Mg Tablet) 6.25 mg PO BID [facility] Last Admin: 05/10/23 08:47 Dose: 6.25 mg Clopidogrel Bisulfate (Clopidogrel 75 Mg Tablet) 75 mg PO DAILY [facility] Last Admin: 05/10/23 08:47 Dose: 75 mg Clopidogrel Bisulfate (Clopidogrel 75 Mg Tablet) 75 mg PO ONCE ONE Stop: 05/05/23 18:17 Last Admin: 05/05/23 20:18 Dose: 75 mg Dextrose (Dextrose 50% Syringe 50 Ml) 25 ml IVP PRN PRN; Protocol PRN Reason: Adult DKA Hypoglycemia Nursing Protocol. Dextrose (Dextrose 50% Syringe 50 Ml) 50 ml IVP PRN PRN; Protocol PRN Reason: Adult DKA Hypoglycemia Nursing Protocol Dextrose (Dextrose 50% Syringe 50 Ml) 25 ml IVP ONCE PRN; Protocol PRN Reason: hypoglycemia protocol Dextrose (Dextrose 50% Syringe 50 Ml) 50 ml IVP PRN PRN; Protocol PRN Reason: hypoglycemia protocol Enoxaparin Sodium (Enoxaparin 40 Mg/0.4 Ml Syringe) 40 mg SUBCUT Q24H [facility] Last Admin: 05/05/23 17:24 Dose: 40 mg Enoxaparin Sodium (Enoxaparin 40 Mg/0.4 Ml Syringe) 40 mg SUBCUT Q24H [facility] Last Admin: 05/10/23 12:09 Dose: 40 mg Fentanyl (Fentanyl 50 Mcg/Ml Inj 2ml) Confirm Administered Dose 100 mcg .ROUTE .STK-MED ONE Stop: 05/08/23 08:58 Furosemide (Furosemide 20 Mg Tablet) 20 mg PO DAILY@0800 [facility] Last Admin: 05/10/23 08:47 Dose: 20 mg Heparin Sodium (Porcine) (Heparin 5,000 Unit/Ml Inj 1 Ml) 0 unit IV PRN PRN; Protocol PRN Reason: Heparin weight-base protocol Last Admin: 05/05/23 21:26 Dose: 4,400 unit Heparin Sodium (Porcine) (Heparin 5,000 Unit/Ml Inj 1 Ml) Confirm Administered Dose 10,000 unit .ROUTE .STK-MED ONE Stop: 05/08/23 08:58 Magnesium Sulfate (Magnesium Sulfate Premix) 2 gm in 50 mls @ 50 mls/hr IV PRN PRN PRN Reason: HYPOMAGNESIUMIA Lidocaine HCl 5 ml/ Potassium (Chloride) 105 mls @ 25 mls/hr IV PRN PRN PRN Reason: hypokalemia Insulin Human Regular 250 unit (/ Sodium Chloride) 252.5 mls @ 0 mls/hr IV .Q0M [facility]; Protocol Last Titration: 05/07/23 11:28 Dose: Infused Potassium Phosphate 40 meq/ (Sodium Chloride) 108.5106 mls @ 27.273 mls/hr IV PRN PRN PRN Reason: hypophosphatemia Sodium Chloride (Sodium Chloride 0.9%) 1,000 mls @ 125 mls/hr IV .Q8H [facility] Stop: 05/07/23 09:05 Last Admin: 05/07/23 09:17 Dose: Not Given Heparin Sodium/Sodium Chloride (Heparin Drip) 25,000 unit in 500 mls @ 0 mls/hr IV .Q0M [facility]; Protocol Last Titration: 05/08/23 10:30 Dose: Infused Lidocaine HCl 5 ml/ Potassium (Chloride) 105 mls @ 26.25 mls/hr IV ONCE ONE Stop: 05/05/23 22:37 Last Infusion: 05/06/23 03:51 Dose: Infused Dextrose/Sodium Chloride (Dextrose 5%-Sod Chloride 0.9%) 1,000 mls @ 75 mls/hr IV .[id number] PRN PRN Reason: blood glucose less than or equal to 250 mg/dL Last Infusion: 05/06/23 08:33 Dose: 0 mls/hr Sodium Chloride (Sodium Chloride 0.9%) 500 mls @ 999 mls/hr IV .Q31M ONE Stop: 05/06/23 05:54 Last Admin: 05/06/23 05:41 Dose: 999 mls/hr Lidocaine HCl 5 ml/ Potassium (Chloride) 105 mls @ 26.25 mls/hr IV ONCE ONE Stop: 05/06/23 12:13 Last Infusion: 05/06/23 12:59 Dose: Infused Potassium Chloride/Dextrose/Sod Cl (Dextrose 5%-Ns 0.45% + Kcl 40) 1,000 mls @ 75 mls/hr IV .[id number] [facility] Last Infusion: 05/07/23 11:28 Dose: Infused Dextrose (D5w) 500 mls @ 0 mls/hr IV ONCE PRN; Protocol PRN Reason: Adult Acute Hypoglycemia Prot Lidocaine HCl (Xylocaine) Confirm Administered Dose 1 mls @ as directed .ROUTE .STK-MED ONE Stop: 05/08/23 08:59 Sodium Chloride (Sodium Chloride 0.9%) Confirm Administered Dose 1,000 mls @ as directed .ROUTE .STK-MED ONE Stop: 05/08/23 10:52 Insulin Glargine (Insulin Glargine 100 Units/1 Ml) 10 unit SUBCUT Q24H [facility] Last Admin: 05/10/23 12:09 Dose: 10 unit Insulin Human Lispro (Insulin Lispro 100 Unit/1 Ml) 0 unit SUBCUT TIDWM [facility]; Protocol Last Admin: 05/10/23 12:10 Dose: 8 unit Lanolin (Lanolin Oint 7 Gm) 1 applic TOPICAL PRN PRN PRN Reason: DRYNESS Lorazepam (Lorazepam 2 Mg/Ml Inj 1 Ml) 0.5 mg IVP Q4H PRN PRN Reason: nuasea Losartan Potassium (Losartan 50 Mg Tablet) 25 mg PO DAILY [facility] Last Admin: 05/10/23 08:47 Dose: 25 mg Metoclopramide HCl (Metoclopramide 5 Mg/Ml Sdv 2 Ml) 5 mg IVP Q6H PRN PRN Reason: NAUSEA AND VOMITING Last Admin: 05/07/23 04:04 Dose: 5 mg Metoprolol Succinate (Metoprolol Succinate Er (24 Hr) 25 Mg Tablet) 12.5 mg PO DAILY [facility] Midazolam HCl (Midazolam 1 Mg/Ml Inj 2 Ml) Confirm Administered Dose 2 mg .ROUTE .STK-MED ONE Stop: 05/08/23 08:59 Midazolam HCl (Midazolam 1 Mg/Ml Inj 2 Ml) Confirm Administered Dose 2 mg .ROUTE .STK-MED ONE Stop: 05/08/23 11:10 Morphine Sulfate (Morphine 4 Mg/Ml Sdv 1 Ml) 2 mg IVP Q4H PRN PRN Reason: SEVERE PAIN Nitroglycerin (Nitroglycerin 5 Mg/Ml Sdv 10 Ml) Confirm Administered Dose 50 mg .ROUTE .STK-MED ONE Stop: 05/08/23 08:58 Ondansetron HCl (Ondansetron 2 Mg/Ml Sdv 2 Ml) 4 mg IVP Q6H PRN PRN Reason: vomiting, or N/V if npo Last Admin: 05/06/23 06:12 Dose: 4 mg Ondansetron HCl (Ondansetron 2 Mg/Ml Sdv 2 Ml) 8 mg IVP Q6H PRN PRN Reason: NAUSEA AND VOMITING Last Admin: 05/07/23 20:11 Dose: 8 mg Pantoprazole Sodium (Pantoprazole 40 Mg Sdv) 40 mg IVP Q24H [facility] Last Admin: 05/06/23 16:46 Dose: 40 mg Pantoprazole Sodium (Pantoprazole 40 Mg Sdv) 40 mg IVP Q12H [facility] Last Admin: 05/10/23 12:09 Dose: 40 mg Potassium Chloride (Potassium Chloride Er 20 Meq Tablet) 40 meq PO ONCE ONE Stop: 05/06/23 12:12 Last Admin: 05/06/23 13:00 Dose: 40 meq Potassium Chloride (Potassium Chloride Er 20 Meq Tablet) 40 meq PO ONCE ONE Stop: 05/10/23 08:23 Last Admin: 05/10/23 08:47 Dose: 40 meq Promethazine HCl (Promethazine 25 Mg/Ml Sdv 1 Ml) 12.5 mg IM Q6H PRN PRN Reason: NAUSEA Last Admin: 05/06/23 08:50 Dose: 12.5 mg Scopolamine (Scopolamine 1.5 Patch) 1 patch TRANSDERMA Q3D [facility] Last Admin: 05/10/23 09:49 Dose: 1 patch Spironolactone (Spironolactone 25 Mg Tablet) 25 mg PO DAILY [facility] Last Admin: 05/05/23 20:19 Dose: 25 mg Sucralfate (Sucralfate 1 Gm/10 Ml Oral Liq Udc) 1 gm PO AC&BEDTIME [facility] Last Admin: 05/10/23 12:09 Dose: 1 gm Allergies No Known Allergies Allergy (Verified 05/16/23 10:21) Home Medications aspirin 81 mg tablet,delayed release (Adult Low Dose Aspirin) 81 mg PO BID 06/24/19 [History Confirmed 05/16/23] gemfibrozil 600 mg tablet 600 mg PO BID 06/24/19 [History Confirmed 05/16/23] albuterol sulfate 90 mcg/actuation aerosol inhaler (ProAir HFA) 2 puff inhalation QID PRN Shortness Of Breath 05/06/23 [History Confirmed 05/16/23] coenzyme Q10 100 mg capsule (CoQ-10) 100 mg PO DAILY 05/06/23 [History Confirmed 05/16/23] diphenhydramine HCl 25 mg tablet (Benadryl Allergy) 25 mg PO BEDTIME 05/06/23 [History Confirmed 05/16/23] ginkgo biloba 40 mg tablet 40 mg PO DAILY 05/06/23 [History Confirmed 05/16/23] glipizide 10 mg tablet, extended release 24 hr 10 mg PO BID 05/06/23 [History Confirmed 05/16/23] metformin 500 mg tablet,extended release 24 hr 500 mg PO BID 05/06/23 [History Confirmed 05/16/23] omega-3 fatty acids 1,000 mg capsule 1,000 mg PO DAILY 05/06/23 [History Confirmed 05/16/23] vitamin B complex 1 tab PO DAILY 05/06/23 [History Confirmed 05/16/23] Discharge Plan Discharge Patient Disposition: Home Prescriptions: No Action aspirin [Adult Low Dose Aspirin] 81 mg tablet,delayed release (DR/EC) 81 mg PO BID gemfibrozil 600 mg tablet 600 mg PO BID Fish Oil Concentrate 1,000 mg Capsule 1,000 mg PO DAILY glipizide 10 mg Tablet Extended Release 24hr 10 mg PO BID ginkgo biloba 40 mg Tablet 40 mg PO DAILY Benadryl Allergy 25 mg Tablet 25 mg PO BEDTIME vitamin B complex Tablet 1 tab PO DAILY metformin 500 mg Tablet Extended Release 24 Hr 500 mg PO BID CoQ-10 100 mg Capsule 100 mg PO DAILY ProAir HFA 90 mcg/actuation HFA aerosol inhaler 2 puff inhalation QID PRN (Reason: Shortness Of Breath) Discharge Orders: Discharge Order (Routine); Ordered 06/06/23 Ordered By: Brian Gordon Referrals: Matt Chen MD [Physician] - (Your Dr. Chen follow up appointment will be scheduled during your Nani Canchola appointment. Thank you.) Nani Canchola FNP [Nurse Practitioner] - 05/16/23 10:30 am Patient Instructions: Diabetic Ketoacidosis (DC), Angiogram (DC), Opioid Safety, Post Angiogram Home Care Instructions, Post Heart Attack Stoplight Transfer Attestations Time Spent in Transfer Care: greater than 30 min Quality Metrics Clinical Quality Measures [ Acute Myocardial Infaction { Clinical Trial Participant: No; Contraindication to aspirin: None; Aspirin prescribed; Contraindication to statin: None; Statin prescribed;}] Coding Level of Care Code 95712 Total time (in minutes) for Discharge: 45 Diagnoses Diabetic ketoacidosis E11.10 ST elevation myocardial infarction (STEMI) in recovery phase I21.3 Acute kidney injury N17.9 Ischemic cardiomyopathy I25.5 Dyslipidemia E78.5 T2DM (type 2 diabetes mellitus) E11.9 Recent non-ST elevation myocardial infarction
== END 2023-05-10 15:10 | disposition home or self-care (01) | DRG 637 ==
LOC: ICU 05-08 15:01 → CSU 05-08 23:23
PROVIDERS: Internal Medicine Cardiovascular Disease; Student in an Organized Health Care Education/Training Program; Admitting Provider Family Medicine; Family Provider Family Medicine; PCP Family Medicine; Visit Provider Family Medicine
PROC: B2111ZZ Fluoroscopy of Multiple Coronary Arteries using Low Osmolar Contrast (ICD-10-PCS; principal; 2023-05-08 11:00)
DX: E11.10 Type 2 diabetes mellitus with ketoacidosis without coma (principal); I21.21 ST elevation (STEMI) myocardial infarction involving left circumflex coronary artery; N17.9 Acute kidney failure, unspecified; I25.10 Atherosclerotic heart disease of native coronary artery without angina pectoris; I25.5 Ischemic cardiomyopathy; E78.5 Hyperlipidemia, unspecified; I10 Essential (primary) hypertension; E86.0 Dehydration; I25.2 Old myocardial infarction; Z95.5 Presence of coronary angioplasty implant and graft; Z79.82 Long term (current) use of aspirin; Z79.84 Long term (current) use of oral hypoglycemic drugs; Z82.49 Family history of ischemic heart disease and other diseases of the circulatory system; Z79.02 Long term (current) use of antithrombotics/antiplatelets
CPT/HCPCS: 36415; 36416; 76705; 80048; 80053; 80061; 82550; 82962; 82977; 83036; 83605; 83735; 83880; 84100; 84145; 84443; 84484; 85025; 85049; 85730; 93005; 93306; 93454; 96372; 96376; 99152; 99153; C1760; C1769; C1887; C1894; C9113; CATH; J1644; J1650; J1815; J2250; J2405; J2550; J2765; J3010; J3480; J3490; J7030; J7040; J7042; J7050; Q9967

== ENCOUNTER → 2023-05-16 10:08 | Outpatient (BNVA) | payer OTHER, SELFPAY | PROVIDERS: Family Provider Family Medicine; PCP Family Medicine; Visit Provider Nurse Practitioner Family | DX: I21.3 ST elevation (STEMI) myocardial infarction of unspecified site (principal); I25.5 Ischemic cardiomyopathy; I10 Essential (primary) hypertension | CPT/HCPCS: 99213 ==

== ENCOUNTER → 2024-04-18 14:44 | Outpatient (BNVA) | payer OTHER, SELFPAY | PROVIDERS: Family Provider Family Medicine; PCP Family Medicine; Visit Provider Registered Nurse | DX: Z02.1 Encounter for pre-employment examination (principal) | CPT/HCPCS: 80307 ==